=== PATIENT | male | born 1960 | race Caucasian/White ===

== ENCOUNTER 2023-04-24 14:53 | Inpatient (IN) | payer OTHER ==
[~2023-04-24 14:53] MED LIST: Iopamidol 370 76% 100 ML VIAL ONE
[2023-04-24 15:57] LABS: #Eosinphils 0.1 thou/uL (0.0-0.7); #Monocytes 0.7 thou/uL (0.11-0.59); #Neutrophils 4.8 thou/uL (1.40-6.50); %Basophils 0.2 % (0.0-1.0); %Eosinophils 1.8 % (0.0-10.0); %Lymphocytes 13.6 % (21.0-51.0); %Monocytes 11.2 % (0.0-10.0); %Neutrophils 72.7 % (42.0-75.0); Hemoglobin 8.4 g/dL (14.0-18.0); Mean Corpuscular Hemoglobin 28.9 pg (27.0-31.0); Mean Corpuscular Volume 99.7 fl (78.0-98.0); Mean Platelet Volume 10.5 fL (7.4-10.4); Platelet Count 176 10x3/uL (130-400); RBC Distribution Width 20.8 % (11.5-14.5); Red Blood Cell (RBC) Count 2.91 mill/uL (4.70-6.10); White Blood Cell (WBC) Count 6.5 10x3/uL (4.8-10.8)
[2023-04-24 16:20] LABS: ALT (SGPT) 20 U/L (8-55); AST (SGOT) 36 U/L (5-34); Albumin 2.3 g/dL (3.4-4.8); Alkaline Phosphatase 90 U/L (40-110); Anion Gap 10 mmol/L (10-20); BUN (Urea Nitrogen) 18 mg/dL (8.4-25.7); Bilirubin, Total 0.9 mg/dL (0.2-1.2); Calc. Creatinine Clearance 0 mL/min (70-130); Calcium 7.8 mg/dL (7.8-10.44); Carbon Dioxide 19 mmol/L (23-31); Chloride 116 mmol/L (98-107); Estimated GFR 98; Globulin 4.8 g/dL (2.4-3.5); Glucose 118 mg/dL (80-115); Potassium 3.3 mmol/L (3.5-5.1); Protein, Total 7.1 g/dL (5.8-8.1); Sodium 142 mmol/L (136-145)
[2023-04-24] MEDS ORDERED: Sodium Chloride 0.9% 100 ML ONE (17:46)
[2023-04-24] MEDS ORDERED: cefTRIAXone (ROCEPHIN) 2 GM VIAL ONE (17:46)
[2023-04-24] MEDS ORDERED: Ondansetron PF 4 MG/2 ML Vial IVP PRN (20:41)
[2023-04-24] MEDS ORDERED: Acetaminophen 325 MG TAB PO PRN (20:41)
[2023-04-24] MEDS ORDERED: Ondansetron ODT 4 MG TAB PO PRN (20:41)
[2023-04-24] MEDS ORDERED: Acetaminophen 650 MG Suppository PR PRN (20:41)
[2023-04-24] MEDS ORDERED: Electrolyte Replacement Protocol 1 EACH FS SCH (20:42)
[2023-04-24] MEDS ORDERED: Lorazepam 1 MG TAB PO PRN (20:44)
[2023-04-24] MEDS ORDERED: Lorazepam 2 MG/ML VIAL IM PRN (20:44)
[2023-04-24 20:57] LABS: Hemoglobin A1c 5.1 % (4.0-6.0)
[2023-04-24 21:07] LABS: Magnesium 2.2 mg/dL (1.6-2.6); Phosphorus 3.1 mg/dL (2.3-4.7)
[2023-04-24] MEDS ORDERED: Nicotine 14 MG PATCH TD PRN (21:13)
[2023-04-24 22:04] LABS: Body Fluid Source Ascites Body Fluid; Tube # 3
[2023-04-24 22:05] LABS: Clarity Hazy (Clear)
[2023-04-24 22:19] LABS: RBC Count-Automated (BF) 260 /cu.mm; WBC/Nucleated-Auto (BF) 507 /cu.mm
[2023-04-24 22:21] LABS: BF Color Yellow
[2023-04-24 22:21] LABS: INR-International Normal Ratio 1.4; Prothrombin Time 17.4 sec (12.0-14.7)
[2023-04-24 22:57] LABS: BF Segmented Neutrophils 19 %; Cell Count Non Hematic 36 %; Lymphocytes 45 %
[2023-04-25 00:59] VITALS: BMI 26.4
[2023-04-25] MEDS: Famotidine 20 MG TAB PO SCH ×2 (01:03→08:07)
[2023-04-25] MEDS: Thiamine HCl 200 MG/2 ML VIAL SLOW IVP SCH ×2 (01:07→21:43)
[2023-04-25] MEDS: Famotidine/PF 20 mg/2ml Vial SLOW IVP SCH ×3 (01:07→21:43)
[2023-04-25] MEDS: Albumin 25% 25 GM/100 ML BOT IVPB SCH ×4 (01:08→17:44)
[2023-04-25 01:42] LABS: HBCM Index 0.11 S/CO (0-0.79); HBSAg Index 0.24 S/CO (0-0.99); Hep A IgM AB Non-Reactive S/CO (NonReactive); Hep B Surf Ag Non-Reactive S/CO (NonReactive); Hepatitis B Core IgM Abs Non-Reactive S/CO (NonReactive)
[2023-04-25 02:58] LABS: Hep C IgG Ab Reflex HepC Qnt S/CO (NonReactive)
[2023-04-25 07:05] LABS: Amphetamine Detected (NotDetected); Barbiturates Screen Not Detected (NotDetected); Benzodiazepine Screen Not Detected (NotDetected); Cocaine Metabolite Screen Not Detected (NotDetected); Methadone Not Detected (NotDetected); Methamphetamine Detected (NotDetected); Opiate Screen Not Detected (NotDetected); Oxycodone Screen Not Detected (NotDetected); Phencyclidine (PCP) Not Detected (NotDetected); THC/Cannabinoid Screen Detected (NotDetected); Tricyclic Screen Not Detected (NotDetected)
[2023-04-25] MEDS: Folic Acid 1 MG TAB PO SCH (08:07)
[2023-04-25] MEDS: Multivit, Therapeutic 1 TAB PO SCH (08:08)
[2023-04-25] MEDS ORDERED: cefTRIAXone\\ROCEPHIN 1 GM in Sodium Chloride 0.9% 100 ML IVPB SCH (09:00)
[2023-04-25] MEDS: Furosemide 40 MG TAB PO SCH (10:51)
[2023-04-25] MEDS: Spironolactone 100 MG TAB PO SCH (10:51)
[2023-04-25 11:11] LABS: Syphilis Antibody Nonreactive (Nonreactive); Syphilis Antibody Index 0.45 S/CO (<1.00 Non-Reactive)
[2023-04-25] MEDS: cefTRIAXone\\ROCEPHIN 1 GM in Sodium Chloride 0.9% 100 ML IVPB SCH (17:01)
[2023-04-25] MEDS ORDERED: Lorazepam 1 MG TAB PO PRN (20:44)
[2023-04-25 21:02] LABS: #Eosinphils 0.1 thou/uL (0.0-0.7); #Monocytes 0.4 thou/uL (0.11-0.59); #Neutrophils 2.4 thou/uL (1.40-6.50); %Basophils 0.3 % (0.0-1.0); %Eosinophils 2.5 % (0.0-10.0); %Lymphocytes 19.4 % (21.0-51.0); %Monocytes 10.4 % (0.0-10.0); %Neutrophils 67.1 % (42.0-75.0); Hematocrit 23.8 % (42.0-52.0); Hemoglobin 7.2 g/dL (14.0-18.0); Mean Corpuscular HGB CONC 30.3 g/dL (32.0-36.0); Mean Corpuscular Hemoglobin 28.3 pg (27.0-31.0); Mean Corpuscular Volume 93.7 fl (78.0-98.0); Mean Platelet Volume 10.9 fL (7.4-10.4); Platelet Count 157 10x3/uL (130-400); RBC Distribution Width 19.9 % (11.5-14.5); Red Blood Cell (RBC) Count 2.54 mill/uL (4.70-6.10); White Blood Cell (WBC) Count 3.6 10x3/uL (4.8-10.8)
[2023-04-25 21:27] LABS: ALT (SGPT) 15 U/L (8-55); AST (SGOT) 27 U/L (5-34); Alkaline Phosphatase 84 U/L (40-110); Anion Gap 8 mmol/L (10-20); BUN (Urea Nitrogen) 21 mg/dL (8.4-25.7); Bilirubin, Total 0.8 mg/dL (0.2-1.2); Calc. Creatinine Clearance 82 mL/min (70-130); Calcium 7.8 mg/dL (7.8-10.44); Carbon Dioxide 19 mmol/L (23-31); Chloride 115 mmol/L (98-107); Estimated GFR 95; Globulin 3.4 g/dL (2.4-3.5); Glucose 112 mg/dL (80-115); Iron 32 ug/dL (65-175); Iron Binding Capacity, Total 190 mcg/dL (261-462); Iron Binding Capacity, Total 208 mcg/dL (261-462); Potassium 3.3 mmol/L (3.5-5.1); Protein, Total 6.4 g/dL (5.8-8.1); Sodium 139 mmol/L (136-145)
[2023-04-26 05:35] LABS: Hematocrit 24.4 % (42.0-52.0); Hemoglobin 7.4 g/dL (14.0-18.0); Mean Corpuscular HGB CONC 30.3 g/dL (32.0-36.0); Mean Corpuscular Hemoglobin 28.6 pg (27.0-31.0); Mean Corpuscular Volume 94.2 fl (78.0-98.0); Mean Platelet Volume 9.8 fL (7.4-10.4); Platelet Count 139 10x3/uL (130-400); RBC Distribution Width 20.1 % (11.5-14.5); Red Blood Cell (RBC) Count 2.59 mill/uL (4.70-6.10); White Blood Cell (WBC) Count 3.3 10x3/uL (4.8-10.8)
[2023-04-26 06:00] LABS: Anion Gap 9 mmol/L (10-20); BUN (Urea Nitrogen) 20 mg/dL (8.4-25.7); Calc. Creatinine Clearance 87 mL/min (70-130); Calcium 7.8 mg/dL (7.8-10.44); Carbon Dioxide 19 mmol/L (23-31); Chloride 115 mmol/L (98-107); Estimated GFR 97; Glucose 140 mg/dL (80-115); Potassium 3.7 mmol/L (3.5-5.1); Sodium 139 mmol/L (136-145)
[2023-04-26 06:07] LABS: Immunoglob - G (Total IgG) 2030 mg/dL (540-1822)
[2023-04-26 06:08] LABS: Immunoglob - M (Total IgM) 143 mg/dL (22-240)
[2023-04-26] MEDS: Multivit, Therapeutic 1 TAB PO SCH (08:28)
[2023-04-26] MEDS: Furosemide 40 MG TAB PO SCH (08:28)
[2023-04-26] MEDS: Spironolactone 100 MG TAB PO SCH ×2 (08:28→21:27)
[2023-04-26] MEDS: Folic Acid 1 MG TAB PO SCH (08:28)
[2023-04-26] MEDS: Famotidine/PF 20 mg/2ml Vial SLOW IVP SCH ×2 (08:28→21:27)
[2023-04-26] MEDS: Ferrous Sulfate 325 MG TAB PO SCH (11:07)
[2023-04-26] MEDS: Albumin 25% 25 GM/100 ML BOT IVPB SCH ×3 (13:06→23:20)
[2023-04-26] MEDS: Furosemide 40 MG/4 ML VIAL SLOW IVP SCH (13:06)
[2023-04-26] MEDS: cefTRIAXone\\ROCEPHIN 1 GM in Sodium Chloride 0.9% 100 ML IVPB SCH (17:14)
[2023-04-26] MEDS ORDERED: Lorazepam 1 MG TAB PO PRN (20:44)
[2023-04-26] MEDS: Thiamine HCl 200 MG/2 ML VIAL SLOW IVP SCH (21:27)
[2023-04-27 05:26] LABS: #Eosinphils 0.1 thou/uL (0.0-0.7); #Monocytes 0.4 thou/uL (0.11-0.59); #Neutrophils 1.9 thou/uL (1.40-6.50); %Basophils 0.3 % (0.0-1.0); %Eosinophils 2.6 % (0.0-10.0); %Lymphocytes 23.5 % (21.0-51.0); %Monocytes 12.3 % (0.0-10.0); Hematocrit 25.2 % (42.0-52.0); Hemoglobin 7.7 g/dL (14.0-18.0); Mean Corpuscular HGB CONC 30.6 g/dL (32.0-36.0); Mean Corpuscular Volume 91.6 fl (78.0-98.0); Mean Platelet Volume 11.7 fL (7.4-10.4); Platelet Count 156 10x3/uL (130-400); RBC Distribution Width 19.8 % (11.5-14.5); Red Blood Cell (RBC) Count 2.75 mill/uL (4.70-6.10); White Blood Cell (WBC) Count 3.1 10x3/uL (4.8-10.8)
[2023-04-27] MEDS: Furosemide 40 MG/4 ML VIAL SLOW IVP SCH ×2 (06:43→13:52)
[2023-04-27] MEDS: Albumin 25% 25 GM/100 ML BOT IVPB SCH (06:43)
[2023-04-27 07:02] LABS: ALT (SGPT) 15 U/L (8-55); AST (SGOT) 27 U/L (5-34); Albumin 3.3 g/dL (3.4-4.8); Alkaline Phosphatase 80 U/L (40-110); Anion Gap 13 mmol/L (10-20); BUN (Urea Nitrogen) 22 mg/dL (8.4-25.7); Bilirubin, Total 0.9 mg/dL (0.2-1.2); Calc. Creatinine Clearance 85 mL/min (70-130); Calcium 8.3 mg/dL (7.8-10.44); Carbon Dioxide 21 mmol/L (23-31); Chloride 113 mmol/L (98-107); Estimated GFR 97; Globulin 3.5 g/dL (2.4-3.5); Glucose 97 mg/dL (80-115); Potassium 3.7 mmol/L (3.5-5.1); Protein, Total 6.8 g/dL (5.8-8.1); Sodium 143 mmol/L (136-145)
[2023-04-27] MEDS: Multivit, Therapeutic 1 TAB PO SCH (08:16)
[2023-04-27] MEDS: Spironolactone 100 MG TAB PO SCH ×2 (08:16→21:55)
[2023-04-27] MEDS: Famotidine/PF 20 mg/2ml Vial SLOW IVP SCH ×2 (08:16→21:55)
[2023-04-27] MEDS: Folic Acid 1 MG TAB PO SCH (08:16)
[2023-04-27] MEDS ORDERED: Lorazepam 0.5 MG TAB PO PRN (20:44)
[2023-04-27] MEDS: Thiamine 100 MG TAB PO SCH (21:55)
[2023-04-28] MEDS: Furosemide 40 MG/4 ML VIAL SLOW IVP SCH (05:17)
[2023-04-28 05:23] LABS: #Eosinphils 0.1 thou/uL (0.0-0.7); #Monocytes 0.5 thou/uL (0.11-0.59); #Neutrophils 1.7 thou/uL (1.40-6.50); %Basophils 0.7 % (0.0-1.0); %Eosinophils 2.6 % (0.0-10.0); %Lymphocytes 24.6 % (21.0-51.0); %Monocytes 15.1 % (0.0-10.0); %Neutrophils 56.7 % (42.0-75.0); Hematocrit 26.3 % (42.0-52.0); Hemoglobin 8.1 g/dL (14.0-18.0); Mean Corpuscular HGB CONC 30.8 g/dL (32.0-36.0); Mean Corpuscular Hemoglobin 28.5 pg (27.0-31.0); Mean Corpuscular Volume 92.6 fl (78.0-98.0); Mean Platelet Volume 10.2 fL (7.4-10.4); Platelet Count 134 10x3/uL (130-400); RBC Distribution Width 19.5 % (11.5-14.5); Red Blood Cell (RBC) Count 2.84 mill/uL (4.70-6.10); White Blood Cell (WBC) Count 3.1 10x3/uL (4.8-10.8)
[2023-04-28 05:54] LABS: ALT (SGPT) 16 U/L (8-55); AST (SGOT) 31 U/L (5-34); Albumin 3.5 g/dL (3.4-4.8); Alkaline Phosphatase 74 U/L (40-110); Anion Gap 12 mmol/L (10-20); BUN (Urea Nitrogen) 25 mg/dL (8.4-25.7); Bilirubin, Total 1.1 mg/dL (0.2-1.2); Calc. Creatinine Clearance 83 mL/min (70-130); Calcium 8.7 mg/dL (7.8-10.44); Carbon Dioxide 23 mmol/L (23-31); Chloride 107 mmol/L (98-107); Estimated GFR 96; Globulin 3.4 g/dL (2.4-3.5); Glucose 156 mg/dL (80-115); Potassium 3.7 mmol/L (3.5-5.1); Protein, Total 6.9 g/dL (5.8-8.1); Sodium 138 mmol/L (136-145)
[2023-04-28] MEDS: Famotidine/PF 20 mg/2ml Vial SLOW IVP SCH ×3 (09:10→22:24)
[2023-04-28] MEDS: Ferrous Sulfate 325 MG TAB PO SCH (09:11)
[2023-04-28] MEDS: Folic Acid 1 MG TAB PO SCH (09:11)
[2023-04-28] MEDS: Spironolactone 100 MG TAB PO SCH ×2 (09:11→22:24)
[2023-04-28] MEDS: Multivit, Therapeutic 1 TAB PO SCH (09:11)
[2023-04-28] MEDS ORDERED: Furosemide 40 MG TAB PO SCH ×2 (09:15→14:00)
[2023-04-28 12:21] LABS: ANA Symphony (Qualitative) Negative (Negative); ANA Symphony (Quantitative) 0.3 Ratio (< 0.7 Negative); EliA Vaculitis New Method **** NEW METHOD ****; Mitochondrial Ab 1.5 U/mL (<4 Negative); dsDNA IgG Antibody 5.7 IU/mL (<10 Negative)
[2023-04-28] MEDS: Thiamine 100 MG TAB PO SCH (22:24)
[2023-04-29 03:47] LABS: #Eosinphils 0.1 thou/uL (0.0-0.7); #Monocytes 0.5 thou/uL (0.11-0.59); #Neutrophils 2.6 thou/uL (1.40-6.50); %Basophils 0.2 % (0.0-1.0); %Eosinophils 2.5 % (0.0-10.0); %Lymphocytes 20.3 % (21.0-51.0); %Monocytes 12.6 % (0.0-10.0); %Neutrophils 63.9 % (42.0-75.0); Hematocrit 25.4 % (42.0-52.0); Hemoglobin 7.9 g/dL (14.0-18.0); Mean Corpuscular HGB CONC 31.1 g/dL (32.0-36.0); Mean Corpuscular Hemoglobin 28.6 pg (27.0-31.0); Mean Platelet Volume 11.6 fL (7.4-10.4); Platelet Count 146 10x3/uL (130-400); RBC Distribution Width 19.6 % (11.5-14.5); Red Blood Cell (RBC) Count 2.76 mill/uL (4.70-6.10)
[2023-04-29 04:13] LABS: ALT (SGPT) 18 U/L (8-55); AST (SGOT) 36 U/L (5-34); Albumin 3.3 g/dL (3.4-4.8); Alkaline Phosphatase 115 U/L (40-110); Anion Gap 10 mmol/L (10-20); BUN (Urea Nitrogen) 31 mg/dL (8.4-25.7); Bilirubin, Total 0.8 mg/dL (0.2-1.2); Calc. Creatinine Clearance 63 mL/min (70-130); Calcium 8.7 mg/dL (7.8-10.44); Carbon Dioxide 25 mmol/L (23-31); Chloride 107 mmol/L (98-107); Estimated GFR 69; Globulin 3.6 g/dL (2.4-3.5); Glucose 104 mg/dL (80-115); Potassium 3.8 mmol/L (3.5-5.1); Protein, Total 6.9 g/dL (5.8-8.1); Sodium 138 mmol/L (136-145)
[2023-04-29 08:22] VITALS: BP 102/65; TEMP 98.5
[2023-04-29] MEDS ORDERED: Spironolactone 100 MG TAB PO SCH ×2 (08:30→17:00)
[2023-04-29] MEDS ORDERED: Furosemide 40 MG TAB PO SCH (09:00)
[2023-04-29] MEDS: Multivit, Therapeutic 1 TAB PO SCH (09:11)
[2023-04-29] MEDS: Folic Acid 1 MG TAB PO SCH (09:11)
[2023-04-29] MEDS: Famotidine/PF 20 mg/2ml Vial SLOW IVP SCH (09:12)
[2023-04-29 20:39] LABS: HCV RNA, log10 6.477 (.); Hep C PCR-Quant 3000000 IU/mL (.)
[2023-04-30] MEDS ORDERED: Ferrous Sulfate 325 MG TAB PO SCH (08:00)
== END 2023-04-29 13:06 | disposition home or self-care (01) | DRG 433 ==
LOC: ERS 14:53 → MSONC 20:41
PROVIDERS: ADMIT Student in an Organized Health Care Education/Training Program; ATTEND Internal Medicine
PROC: 30233J1 Transfusion of Nonautologous Serum Albumin into Peripheral Vein, Percutaneous Approach (ICD-10-PCS; 2023-04-24)
PROC: 0W9G3ZX Drainage of Peritoneal Cavity, Percutaneous Approach, Diagnostic (ICD-10-PCS; principal; 2023-04-25)
PROC: 0W9G3ZZ Drainage of Peritoneal Cavity, Percutaneous Approach (ICD-10-PCS; 2023-04-25)
DX: K74.60 Unspecified cirrhosis of liver (principal); R18.8 Other ascites; K42.9 Umbilical hernia without obstruction or gangrene; E87.6 Hypokalemia; B19.20 Unspecified viral hepatitis C without hepatic coma; F19.10 Other psychoactive substance abuse, uncomplicated; D50.9 Iron deficiency anemia, unspecified; Z98.890 Other specified postprocedural states
CPT/HCPCS: 36415; 49082; 74177; 80048; 80053; 80074; 80306; 82042; 82105; 82390; 82607; 82728; 83036; 83516; 83540; 83550; 83735; 84100; 85025; 85027; 85060; 85610; 86015; 86038; 86225; 86780; 87070; 87205; 87522; 88112; 88305; 89051; 96374; J0696; J1940; J3411; J3490; P9047; Q9967; S0028

== ENCOUNTER 2023-06-18 05:07 | Emergency (ER) | payer SELFPAY ==
[2023-06-18] MEDS ORDERED: Morphine 4 MG/ML VIAL ONE ×2 (06:03→09:00)
[2023-06-18] MEDS ORDERED: Ondansetron PF 4 MG/2 ML Vial ONE (06:03)
[2023-06-18 06:12] LABS: #Eosinphils 0.1 thou/uL (0.0-0.7); #Monocytes 0.9 thou/uL (0.11-0.59); #Neutrophils 6.7 thou/uL (1.40-6.50); %Basophils 0.2 % (0.0-1.0); %Eosinophils 0.7 % (0.0-10.0); %Lymphocytes 8.3 % (21.0-51.0); %Monocytes 10.3 % (0.0-10.0); %Neutrophils 80.1 % (42.0-75.0); Hematocrit 36.8 % (42.0-52.0); Hemoglobin 11.7 g/dL (14.0-18.0); Mean Corpuscular HGB CONC 31.8 g/dL (32.0-36.0); Mean Corpuscular Hemoglobin 30.2 pg (27.0-31.0); Mean Corpuscular Volume 94.8 fl (78.0-98.0); Mean Platelet Volume 12.3 fL (7.4-10.4); Platelet Count 161 10x3/uL (130-400); RBC Distribution Width 18.4 % (11.5-14.5); Red Blood Cell (RBC) Count 3.88 mill/uL (4.70-6.10); White Blood Cell (WBC) Count 8.4 10x3/uL (4.8-10.8)
[2023-06-18 06:38] LABS: ALT (SGPT) 29 U/L (8-55); AST (SGOT) 39 U/L (5-34); Albumin 3.4 g/dL (3.4-4.8); Alkaline Phosphatase 82 U/L (40-110); Anion Gap 12 mmol/L (10-20); BUN (Urea Nitrogen) 23 mg/dL (8.4-25.7); Bilirubin, Total 1.3 mg/dL (0.2-1.2); Calc. Creatinine Clearance 0 mL/min (70-130); Calcium 9.1 mg/dL (7.8-10.44); Carbon Dioxide 15 mmol/L (23-31); Chloride 113 mmol/L (98-107); Estimated GFR 88; Globulin 4.4 g/dL (2.4-3.5); Glucose 115 mg/dL (80-115); Lipase 48 U/L (8-78); Potassium 3.5 mmol/L (3.5-5.1); Protein, Total 7.8 g/dL (5.8-8.1); Sodium 136 mmol/L (136-145)
[2023-06-18] MEDS ORDERED: Iopamidol 370 76% 100 ML VIAL ONE (13:21)
== END 2023-06-18 11:28 | disposition home or self-care (01) ==
LOC: ERS 05:07
DX: K40.90 Unilateral inguinal hernia, without obstruction or gangrene, not specified as recurrent (principal); F17.290 Nicotine dependence, other tobacco product, uncomplicated
CPT/HCPCS: 36415; 74177; 80053; 82140; 83605; 83690; 85025; 93005; 96374; 96375; 96376; J2270; J2405; Q9967

== ENCOUNTER 2023-06-28 06:14 | Emergency (ER) | payer OTHER, SELFPAY ==
[2023-06-28] MEDS ORDERED: Morphine 4 MG/ML VIAL ONE (07:06)
[2023-06-28] MEDS ORDERED: Ondansetron PF 4 MG/2 ML Vial ONE (07:06)
[2023-06-28 07:08] LABS: #Eosinphils 0.1 thou/uL (0.0-0.7); #Monocytes 0.8 thou/uL (0.11-0.59); #Neutrophils 3.8 thou/uL (1.40-6.50); %Basophils 0.4 % (0.0-1.0); %Eosinophils 2.5 % (0.0-10.0); %Lymphocytes 16.3 % (21.0-51.0); %Monocytes 13.5 % (0.0-10.0); %Neutrophils 66.9 % (42.0-75.0); Hematocrit 27.7 % (42.0-52.0); Hemoglobin 9.2 g/dL (14.0-18.0); Mean Corpuscular HGB CONC 33.2 g/dL (32.0-36.0); Mean Corpuscular Hemoglobin 30.5 pg (27.0-31.0); Mean Corpuscular Volume 91.7 fl (78.0-98.0); Mean Platelet Volume 11.7 fL (7.4-10.4); Platelet Count 95 10x3/uL (130-400); RBC Distribution Width 18.2 % (11.5-14.5); Red Blood Cell (RBC) Count 3.02 mill/uL (4.70-6.10); White Blood Cell (WBC) Count 5.6 10x3/uL (4.8-10.8)
[2023-06-28 07:21] LABS: INR-International Normal Ratio 1.5; PTT 38.6 sec (22.9-36.1); Prothrombin Time 18.1 sec (12.0-14.7)
[2023-06-28 07:35] LABS: ALT (SGPT) 21 U/L (8-55); AST (SGOT) 39 U/L (5-34); Albumin 3.2 g/dL (3.4-4.8); Alkaline Phosphatase 93 U/L (40-110); Anion Gap 10 mmol/L (10-20); BUN (Urea Nitrogen) 30 mg/dL (8.4-25.7); Bilirubin, Total 0.5 mg/dL (0.2-1.2); Calc. Creatinine Clearance 0 mL/min (70-130); Calcium 8.7 mg/dL (7.8-10.44); Carbon Dioxide 14 mmol/L (23-31); Chloride 113 mmol/L (98-107); Estimated GFR 37; Globulin 4.1 g/dL (2.4-3.5); Glucose 100 mg/dL (80-115); Lipase 97 U/L (8-78); Magnesium 2.1 mg/dL (1.6-2.6); Potassium 4.1 mmol/L (3.5-5.1); Protein, Total 7.3 g/dL (5.8-8.1); Sodium 133 mmol/L (136-145)
[2023-06-28 07:50] LABS: Anisocytosis MARKED = >30 cells HPF (0-5); Burr Cells MODERATE= 6-15 cells HPF (0-1); CellaVision Operator ID LAB.KW3; Platelet Adequacy Comment Platelets Decreased; Poikilocytosis MODERATE=16-30 cells HPF (0-5); Polychromasia SLIGHT = 2-3 cells HPF (0-2); Schistocytes SLIGHT = 2-5 cells HPF (0-1)
[2023-06-28] MEDS ORDERED: Iopamidol-370 76% 500 ML MDV (1 ML CHARGE) ONE (11:02)
== END 2023-06-28 11:44 | disposition home or self-care (01) ==
LOC: ERS 06:14
DX: K46.9 Unspecified abdominal hernia without obstruction or gangrene (principal); F17.210 Nicotine dependence, cigarettes, uncomplicated
CPT/HCPCS: 36415; 74177; 80053; 83605; 83690; 83735; 85025; 85610; 85730; 96361; 96374; 96375; J2270; J2405; Q9967

== ENCOUNTER 2023-08-08 11:51 | Inpatient (IN) | payer OTHER, SELFPAY ==
[2023-08-08 12:49] LABS: #Monocytes 1.1 thou/uL (0.11-0.59); #Neutrophils 17.4 thou/uL (1.40-6.50); %Basophils 0.1 % (0.0-1.0); %Eosinophils 0.2 % (0.0-10.0); %Lymphocytes 2.8 % (21.0-51.0); %Monocytes 5.5 % (0.0-10.0); %Neutrophils 90.9 % (42.0-75.0); Hematocrit 25.1 % (42.0-52.0); Hemoglobin 8.1 g/dL (14.0-18.0); Mean Corpuscular HGB CONC 32.3 g/dL (32.0-36.0); Mean Corpuscular Hemoglobin 30.3 pg (27.0-31.0); Mean Platelet Volume 11.5 fL (7.4-10.4); Platelet Count 235 10x3/uL (130-400); RBC Distribution Width 15.9 % (11.5-14.5); Red Blood Cell (RBC) Count 2.67 mill/uL (4.70-6.10); White Blood Cell (WBC) Count 19.2 10x3/uL (4.8-10.8)
[2023-08-08 13:04] LABS: INR-International Normal Ratio 1.8; Prothrombin Time 20.8 sec (12.0-14.7)
[2023-08-08 13:05] LABS: PTT 33.2 sec (22.9-36.1)
[2023-08-08 13:06] LABS: ALT (SGPT) 12 U/L (8-55); AST (SGOT) 19 U/L (5-34); Albumin 2.6 g/dL (3.4-4.8); Alkaline Phosphatase 69 U/L (40-110); Anion Gap 14 mmol/L (10-20); BUN (Urea Nitrogen) 22 mg/dL (8.4-25.7); Bilirubin, Total 1.5 mg/dL (0.2-1.2); Calc. Creatinine Clearance 0 mL/min (70-130); Calcium 8.3 mg/dL (7.8-10.44); Carbon Dioxide 18 mmol/L (23-31); Chloride 109 mmol/L (98-107); Estimated GFR 55; Globulin 3.4 g/dL (2.4-3.5); Glucose 139 mg/dL (80-115); Lipase 29 U/L (8-78); Potassium 3.4 mmol/L (3.5-5.1); Sodium 138 mmol/L (136-145)
[2023-08-08 13:08] LABS: Troponin I Less than 0.010 ng/mL (< 0.028)
[2023-08-08] MEDS ORDERED: Cefepime 2 GM VIAL ONE (13:42)
[2023-08-08] MEDS ORDERED: Potassium Chloride 20 MEQ TAB ONE (15:09)
[2023-08-08] MEDS ORDERED: Furosemide 20 MG (2 mL) VIAL ONE (15:09)
[2023-08-08] MEDS ORDERED: Sodium Chloride 0.9% 100 ML ONE (15:10)
[2023-08-08 15:54] LABS: Lactic Acid 2.6 mmol/L (0.5-2.2)
[2023-08-08] MEDS ORDERED: Calcium Carbonate 500 MG ChewTAB PO PRN (16:42)
[2023-08-08] MEDS ORDERED: Senokot S 8.6-50 MG TAB PO PRN (16:42)
[2023-08-08] MEDS ORDERED: Ondansetron PF 4 MG/2 ML Vial IVP PRN (16:42)
[2023-08-08] MEDS ORDERED: Vancomycin 1 GM/200 ML (FROZEN) BAG ONE (16:44)
[2023-08-08 16:45] LABS: Bacteria/HPF None Seen HPF (None Seen); Bilirubin Negative (Negative); Blood, Urine Negative (Negative); CAUTI Indications for Culture Pelvic or flank pain; Clarity Clear (Clear); Glucose, Urine (Dipstick) Normal (Negative); Ketone, Urine Negative (Negative); Leukocyte Negative Leu/uL (Negative); Nitrite Negative (Negative); Protein, Urine (Dipstick) Negative (Neg-Trace); RBC/HPF 0-3 HPF (0-3); Specific Gravity, Urine 1.015 (1.002-1.036); Squamous Epithelial 0-3 HPF (0-3); Urobilinogen Normal mg/dL (Less than 2); WBC/HPF 0-3 HPF (0-3); pH, Urine 5.5 (5.0-9.0)
[2023-08-08 16:47] LABS: Urine Culture Reflex No No
[2023-08-08 17:28] LABS: Troponin I Less than 0.010 ng/mL (< 0.028)
[2023-08-08] MEDS: traMADol HCl 50 MG TAB PO PRN (19:37)
[2023-08-08] MEDS: Midodrine HCl 5 MG TAB PO SCH ×2 (19:45→23:10)
[2023-08-08] MEDS: Albumin 25% 25 GM (100 mL) BOT IVPB SCH (19:45)
[2023-08-08] MEDS: Thiamine 100 MG TAB PO SCH (20:44)
[2023-08-08 20:49] LABS: Troponin I Less than 0.010 ng/mL (< 0.028)
[2023-08-08] MEDS: Vancomycin HCl 750 MG in Sodium Chloride 0.9% 250 ML 250 ML IVPB SCH (21:46)
[2023-08-08] MEDS: Nicotine 14 MG PATCH TD SCH (23:10)
[2023-08-09] MEDS: Cefepime 1 GM in Sodium Chloride 0.9% 100 ML IVPB SCH (03:01)
[2023-08-09 04:54] LABS: #Eosinphils 0.1 thou/uL (0.0-0.7); #Monocytes 0.6 thou/uL (0.11-0.59); %Basophils 0.1 % (0.0-1.0); %Eosinophils 1.1 % (0.0-10.0); %Lymphocytes 6.4 % (21.0-51.0); %Monocytes 6.8 % (0.0-10.0); %Neutrophils 85.1 % (42.0-75.0); Hematocrit 20.7 % (42.0-52.0); Hemoglobin 6.7 g/dL (14.0-18.0); Mean Corpuscular HGB CONC 32.4 g/dL (32.0-36.0); Mean Corpuscular Hemoglobin 30.2 pg (27.0-31.0); Mean Corpuscular Volume 93.2 fl (78.0-98.0); Mean Platelet Volume 10.7 fL (7.4-10.4); Platelet Count 188 10x3/uL (130-400); RBC Distribution Width 15.9 % (11.5-14.5); Red Blood Cell (RBC) Count 2.22 mill/uL (4.70-6.10); White Blood Cell (WBC) Count 9.4 10x3/uL (4.8-10.8)
[2023-08-09 05:08] LABS: Vancomycin, Random 15.3 ug/mL (See Comment)
[2023-08-09 05:15] LABS: INR-International Normal Ratio 1.8; Prothrombin Time 21.2 sec (12.0-14.7)
[2023-08-09 05:21] LABS: ALT (SGPT) 10 U/L (8-55); AST (SGOT) 18 U/L (5-34); Albumin 2.8 g/dL (3.4-4.8); Alkaline Phosphatase 66 U/L (40-110); Anion Gap 14 mmol/L (10-20); BUN (Urea Nitrogen) 21 mg/dL (8.4-25.7); Bilirubin, Total 1.3 mg/dL (0.2-1.2); Calc. Creatinine Clearance 59 mL/min (70-130); Calcium 8.2 mg/dL (7.8-10.44); Carbon Dioxide 19 mmol/L (23-31); Chloride 110 mmol/L (98-107); Estimated GFR 62; Globulin 2.9 g/dL (2.4-3.5); Glucose 105 mg/dL (80-115); Iron 15 ug/dL (65-175); Iron Binding Capacity, Total 144 mcg/dL (261-462); Potassium 3.6 mmol/L (3.5-5.1); Protein, Total 5.7 g/dL (5.8-8.1); Sodium 139 mmol/L (136-145)
[2023-08-09 05:56] LABS: Ferritin 425.07 ng/mL (22-322); Thyroid Stimulating Hormone 1.4341 uIU/mL (0.35-4.94)
[2023-08-09 08:36] VITALS: BMI 27.0
[2023-08-09] MEDS: Folic Acid 1 MG TAB PO SCH (10:45)
[2023-08-09] MEDS: Saccharomyces boulardii 250 MG CAP PO SCH (10:45)
[2023-08-09] MEDS: Vancomycin (BATCH) 1.25 GM in Premix 1 BAG IVPB SCH (17:46)
[2023-08-10] MEDS: Midodrine HCl 5 MG TAB PO SCH (00:12)
[2023-08-10 02:02] LABS: #Eosinphils 0.1 thou/uL (0.0-0.7); #Monocytes 0.4 thou/uL (0.11-0.59); #Neutrophils 5.1 thou/uL (1.40-6.50); %Basophils 0.2 % (0.0-1.0); %Lymphocytes 9.4 % (21.0-51.0); %Monocytes 6.5 % (0.0-10.0); %Neutrophils 82.6 % (42.0-75.0); Hematocrit 21.3 % (42.0-52.0); Hemoglobin 6.9 g/dL (14.0-18.0); Mean Corpuscular HGB CONC 32.4 g/dL (32.0-36.0); Mean Corpuscular Hemoglobin 30.1 pg (27.0-31.0); Mean Platelet Volume 11.3 fL (7.4-10.4); Platelet Count 189 10x3/uL (130-400); RBC Distribution Width 16.1 % (11.5-14.5); Red Blood Cell (RBC) Count 2.29 mill/uL (4.70-6.10); White Blood Cell (WBC) Count 6.2 10x3/uL (4.8-10.8)
[2023-08-10 02:17] LABS: ALT (SGPT) 10 U/L (8-55); AST (SGOT) 16 U/L (5-34); Albumin 2.9 g/dL (3.4-4.8); Alkaline Phosphatase 57 U/L (40-110); Anion Gap 8 mmol/L (10-20); BUN (Urea Nitrogen) 23 mg/dL (8.4-25.7); Bilirubin, Total 1.2 mg/dL (0.2-1.2); Calc. Creatinine Clearance 60 mL/min (70-130); Calcium 8.2 mg/dL (7.8-10.44); Carbon Dioxide 22 mmol/L (23-31); Chloride 112 mmol/L (98-107); Estimated GFR 63; Globulin 2.8 g/dL (2.4-3.5); Glucose 114 mg/dL (80-115); Protein, Total 5.7 g/dL (5.8-8.1); Sodium 138 mmol/L (136-145)
[2023-08-10 04:27] LABS: INR-International Normal Ratio 1.6; Prothrombin Time 18.6 sec (12.0-14.7)
[2023-08-10] MEDS: Acetaminophen 325 MG TAB PO PRN (08:07)
[2023-08-10 13:47] LABS: Hematocrit 24.1 % (42.0-52.0); Hemoglobin 7.8 g/dL (14.0-18.0)
[2023-08-11 08:26] LABS: INR-International Normal Ratio 1.4; Prothrombin Time 16.7 sec (12.0-14.7)
[2023-08-11 08:46] LABS: Vancomycin, Random 14.7 ug/mL (See Comment)
[2023-08-11 09:04] VITALS: BP 128/80; TEMP 98.1
[2023-08-11 10:44] LABS: Hematocrit 25.2 % (42.0-52.0); Hemoglobin 8.3 g/dL (14.0-18.0); Mean Corpuscular HGB CONC 32.9 g/dL (32.0-36.0); Mean Platelet Volume 11.6 fL (7.4-10.4); Platelet Count 187 10x3/uL (130-400); Red Blood Cell (RBC) Count 2.77 mill/uL (4.70-6.10)
== END 2023-08-11 14:43 | disposition home or self-care (01) | DRG 433 ==
LOC: ERS 11:51 → SUATTDRO 11:51 → 2NO 16:28 → T4-A 08-09 16:13
PROVIDERS: ADMIT Internal Medicine; ATTEND Internal Medicine
PROC: 30233J1 Transfusion of Nonautologous Serum Albumin into Peripheral Vein, Percutaneous Approach (ICD-10-PCS; principal; 2023-08-08)
PROC: 30233N1 Transfusion of Nonautologous Red Blood Cells into Peripheral Vein, Percutaneous Approach (ICD-10-PCS; 2023-08-10)
DX: K70.31 Alcoholic cirrhosis of liver with ascites (principal); E87.20 Acidosis, unspecified; L03.116 Cellulitis of left lower limb; L03.115 Cellulitis of right lower limb; I50.9 Heart failure, unspecified; Z90.49 Acquired absence of other specified parts of digestive tract; Z98.890 Other specified postprocedural states; F17.210 Nicotine dependence, cigarettes, uncomplicated; D64.9 Anemia, unspecified; Z79.899 Other long term (current) drug therapy; K21.9 Gastro-esophageal reflux disease without esophagitis; Z71.6 Tobacco abuse counseling; K40.90 Unilateral inguinal hernia, without obstruction or gangrene, not specified as recurrent
CPT/HCPCS: 36415; 36430; 71045; 80053; 80202; 81001; 82728; 83540; 83550; 83605; 83690; 83735; 83880; 84145; 84443; 84484; 85025; 85027; 85610; 85730; 86140; 86850; 86900; 86901; 87040; 87077; 87081; 87149; 87186; 93005; 96365; 96375; J0692; J1940; J3370; J3370-JW; J3490; J7050; P9016; P9047

== ENCOUNTER 2023-11-04 09:31 | Emergency (ER) | payer OTHER, SELFPAY ==
[2023-11-04] MEDS ORDERED: Ondansetron PF 4 MG/2 ML Vial ONE (10:46)
[2023-11-04] MEDS ORDERED: Iopamidol-370 76% 500 ML MDV (1 ML CHARGE) ONE (11:15)
[2023-11-04 11:37] LABS: Hemoglobin 10.4 g/dL (14.0-18.0); Mean Corpuscular HGB CONC 31.5 g/dL (32.0-36.0); Mean Corpuscular Hemoglobin 31.2 pg (27.0-31.0); Mean Corpuscular Volume 99.1 fL (78.0-98.0); Platelet Count 146 10x3/uL (130-400); RBC Distribution Width 18.2 % (11.5-14.5); Red Blood Cell (RBC) Count 3.33 mill/uL (4.70-6.10)
[2023-11-04 11:49] LABS: ALT (SGPT) 32 U/L (8-55); AST (SGOT) 53 U/L (5-34); Albumin 3.2 g/dL (3.4-4.8); Alkaline Phosphatase 113 U/L (40-110); Anion Gap 15 mmol/L (10-20); BUN (Urea Nitrogen) 34 mg/dL (8.4-25.7); Bilirubin, Total 1.1 mg/dL (0.2-1.2); Calc. Creatinine Clearance 0 mL/min (70-130); Calcium 9.6 mg/dL (7.8-10.44); Carbon Dioxide 13 mmol/L (23-31); Chloride 112 mmol/L (98-107); Estimated GFR 41; Globulin 4.3 g/dL (2.4-3.5); Glucose 182 mg/dL (80-115); Lipase 29 U/L (8-78); Potassium 4.1 mmol/L (3.5-5.1); Protein, Total 7.5 g/dL (5.8-8.1); Sodium 136 mmol/L (136-145)
[2023-11-04 12:04] LABS: #Basophils Less than 0.03 10x3/uL (0.0-0.2); #Eosinphils Less than 0.03 10x3/uL (0.0-0.7); %Basophils 0.2 % (0.0-1.0); %Eosinophils 0.2 % (0.0-10.0); %Lymphocytes 8.4 % (21.0-51.0); %Monocytes 6.2 % (0.0-10.0); %Neutrophils 84.5 % (42.0-75.0)
[2023-11-04] MEDS ORDERED: Piperacillin/Tazobactam 4.5 GM VIAL ONE (12:07)
[2023-11-04] MEDS ORDERED: Sodium Chloride 0.9% 100 ML ONE (12:07)
[2023-11-04] MEDS ORDERED: Benzocaine 20% Spray 60 ML CAN ONE (12:32)
== END 2023-11-04 16:16 | disposition short-term general hospital (02) ==
LOC: ERS 09:31
DX: K56.609 Unspecified intestinal obstruction, unspecified as to partial versus complete obstruction (principal); K74.60 Unspecified cirrhosis of liver; F17.210 Nicotine dependence, cigarettes, uncomplicated
CPT/HCPCS: 36415; 43753; 74018; 74177; 80053; 82140; 83690; 85025; 96361; 96365; 96375; J2405; J2543; J3490; Q9967

== ENCOUNTER 2023-11-22 02:30 | Emergency (ER) | payer OTHER ==
[2023-11-22] MEDS ORDERED: Vancomycin (BATCH) 1.5 GM in Premix 1 BAG IVPB SCH (03:30)
[2023-11-22] MEDS ORDERED: Sodium Chloride 0.9% 100 ML ONE (03:37)
[2023-11-22] MEDS ORDERED: Ondansetron PF 4 MG/2 ML Vial ONE (03:37)
[2023-11-22] MEDS ORDERED: Morphine 4 MG/ML VIAL ONE (03:37)
[2023-11-22] MEDS ORDERED: Cefepime 2 GM VIAL ONE (03:37)
[2023-11-22 04:06] LABS: #Basophils Less than 0.03 10x3/uL (0.0-0.2); %Basophils 0.1 % (0.0-1.0); %Eosinophils 0.6 % (0.0-10.0); %Lymphocytes 7.4 % (21.0-51.0); %Neutrophils 80.4 % (42.0-75.0); Hematocrit 30.2 % (42.0-52.0); Hemoglobin 10.1 g/dL (14.0-18.0); Mean Corpuscular HGB CONC 33.4 g/dL (32.0-36.0); Mean Corpuscular Hemoglobin 30.6 pg (27.0-31.0); Mean Corpuscular Volume 91.5 fL (78.0-98.0); Platelet Count 85 10x3/uL (130-400); RBC Distribution Width 16.4 % (11.5-14.5)
[2023-11-22 04:51] LABS: ALT (SGPT) 27 U/L (8-55); AST (SGOT) 61 U/L (5-34); Albumin 2.7 g/dL (3.4-4.8); Alkaline Phosphatase 98 U/L (40-110); Anion Gap 14 mmol/L (10-20); BUN (Urea Nitrogen) 16 mg/dL (8.4-25.7); Calc. Creatinine Clearance 0 mL/min (70-130); Calcium 7.9 mg/dL (7.8-10.44); Carbon Dioxide 14 mmol/L (23-31); Chloride 109 mmol/L (98-107); Estimated GFR 80; Glucose 104 mg/dL (80-115); Lipase 16 U/L (8-78); Magnesium 1.7 mg/dL (1.6-2.6); Potassium 3.8 mmol/L (3.5-5.1); Protein, Total 6.7 g/dL (5.8-8.1); Sodium 133 mmol/L (136-145)
[2023-11-22 05:09] LABS: Platelet Adequacy Comment Platelets Decreased; Polychromasia SLIGHT = 2-3 cells HPF (0-2); Tear Drops SLIGHT = 2-5 cells HPF (0-1)
[2023-11-22 05:59] LABS: Bacteria/HPF None Seen HPF (None Seen); Bilirubin Negative (Negative); Blood, Urine Negative (Negative); CAUTI Indications for Culture Pelvic or flank pain; Clarity Clear (Clear); Glucose, Urine (Dipstick) Normal (Negative); Ketone, Urine Negative (Negative); Leukocyte Negative Leu/uL (Negative); Nitrite Negative (Negative); Protein, Urine (Dipstick) Negative (Neg-Trace); RBC/HPF 0-3 HPF (0-3); Specific Gravity, Urine 1.037 (1.002-1.036); Squamous Epithelial None Seen HPF (0-3); Urobilinogen Normal mg/dL (Less than 2); WBC/HPF 0-3 HPF (0-3); pH, Urine 5.5 (5.0-9.0)
[2023-11-22 06:03] LABS: Urine Culture Reflex No No
[2023-11-22] MEDS ORDERED: Iopamidol-370 76% 500 ML MDV (1 ML CHARGE) ONE (14:41)
== END 2023-11-22 07:35 | disposition home or self-care (01) ==
LOC: ERS 02:30
DX: K43.9 Ventral hernia without obstruction or gangrene (principal); L03.311 Cellulitis of abdominal wall; K74.60 Unspecified cirrhosis of liver; B19.20 Unspecified viral hepatitis C without hepatic coma; F17.210 Nicotine dependence, cigarettes, uncomplicated; Z55.0 Illiteracy and low-level literacy
CPT/HCPCS: 74177; 80053; 81001; 83605; 83690; 83735; 85025; 87040; 87086; 93005; 96374; 96375; J0692; J2270; J2405; J3370; J3490; Q9967

== ENCOUNTER 2023-11-23 10:15 | Emergency (ER) | payer OTHER ==
[2023-11-23] MEDS ORDERED: Ondansetron PF 4 MG/2 ML Vial ONE (11:06)
[2023-11-23] MEDS ORDERED: Morphine 4 MG/ML VIAL ONE ×2 (11:06→13:15)
[2023-11-23 11:11] LABS: #Basophils Less than 0.03 10x3/uL (0.0-0.2); %Basophils 0.1 % (0.0-1.0); %Eosinophils 0.7 % (0.0-10.0); %Lymphocytes 5.4 % (21.0-51.0); %Monocytes 10.5 % (0.0-10.0); %Neutrophils 82.9 % (42.0-75.0); Hematocrit 29.8 % (42.0-52.0); Hemoglobin 9.9 g/dL (14.0-18.0); Mean Corpuscular HGB CONC 33.2 g/dL (32.0-36.0); Mean Corpuscular Hemoglobin 31.2 pg (27.0-31.0); Mean Platelet Volume 11.5 fL (7.4-10.4); Platelet Count 133 10x3/uL (130-400); RBC Distribution Width 16.2 % (11.5-14.5); Red Blood Cell (RBC) Count 3.17 mill/uL (4.70-6.10)
[2023-11-23 11:21] LABS: Bacteria/HPF None Seen HPF (None Seen); Bilirubin Negative (Negative); Blood, Urine Negative (Negative); CAUTI Indications for Culture Pelvic or flank pain; Clarity Clear (Clear); Glucose, Urine (Dipstick) Normal (Negative); Ketone, Urine Negative (Negative); Leukocyte Negative Leu/uL (Negative); Nitrite Negative (Negative); Protein, Urine (Dipstick) 10 mg/dL (Neg-Trace); RBC/HPF 0-3 HPF (0-3); Specific Gravity, Urine 1.024 (1.002-1.036); Squamous Epithelial 0-3 HPF (0-3); Urobilinogen Normal mg/dL (Less than 2); WBC/HPF 0-3 HPF (0-3); pH, Urine 5.5 (5.0-9.0)
[2023-11-23 11:23] LABS: Urine Culture Reflex No No
[2023-11-23 11:31] LABS: ALT (SGPT) 23 U/L (8-55); AST (SGOT) 33 U/L (5-34); Albumin 2.6 g/dL (3.4-4.8); Alkaline Phosphatase 108 U/L (40-110); Anion Gap 12 mmol/L (10-20); BUN (Urea Nitrogen) 22 mg/dL (8.4-25.7); Bilirubin, Total 1.7 mg/dL (0.2-1.2); Calc. Creatinine Clearance 0 mL/min (70-130); Calcium 8.2 mg/dL (7.8-10.44); Carbon Dioxide 17 mmol/L (23-31); Chloride 108 mmol/L (98-107); Estimated GFR 64; Glucose 107 mg/dL (80-115); Lipase 15 U/L (8-78); Magnesium 1.8 mg/dL (1.6-2.6); Potassium 3.3 mmol/L (3.5-5.1); Protein, Total 6.6 g/dL (5.8-8.1); Sodium 134 mmol/L (136-145)
== END 2023-11-23 13:26 | disposition home or self-care (01) ==
LOC: ERS 10:15
DX: K43.9 Ventral hernia without obstruction or gangrene (principal); F17.210 Nicotine dependence, cigarettes, uncomplicated
CPT/HCPCS: 36415; 74177; 80053; 81001; 83605; 83690; 83735; 85025; 96374; 96375; 96376; J2270; J2405

== ENCOUNTER 2023-12-08 19:06 | Emergency (ER) | payer OTHER ==
[2023-12-08 21:10] LABS: #Basophils Less than 0.03 10x3/uL (0.0-0.2); %Basophils 0.1 % (0.0-1.0); %Eosinophils 1.3 % (0.0-10.0); %Lymphocytes 5.9 % (21.0-51.0); %Monocytes 8.4 % (0.0-10.0); %Neutrophils 83.9 % (42.0-75.0); Hematocrit 24.2 % (42.0-52.0); Hemoglobin 7.7 g/dL (14.0-18.0); Mean Corpuscular HGB CONC 31.8 g/dL (32.0-36.0); Mean Corpuscular Hemoglobin 30.4 pg (27.0-31.0); Mean Corpuscular Volume 95.7 fL (78.0-98.0); Mean Platelet Volume 9.8 fL (7.4-10.4); Platelet Count 153 10x3/uL (130-400); RBC Distribution Width 15.7 % (11.5-14.5); Red Blood Cell (RBC) Count 2.53 mill/uL (4.70-6.10)
[2023-12-08 21:30] LABS: Troponin I Less than 0.010 ng/mL (< 0.028)
[2023-12-08 21:33] LABS: ALT (SGPT) 9 U/L (8-55); AST (SGOT) 19 U/L (5-34); Albumin 2.2 g/dL (3.4-4.8); Alkaline Phosphatase 84 U/L (40-110); Anion Gap 10 mmol/L (10-20); BUN (Urea Nitrogen) 15 mg/dL (8.4-25.7); Bilirubin, Total 0.9 mg/dL (0.2-1.2); Calc. Creatinine Clearance 0 mL/min (70-130); Calcium 7.8 mg/dL (7.8-10.44); Carbon Dioxide 21 mmol/L (23-31); Chloride 112 mmol/L (98-107); Estimated GFR 74; Globulin 3.6 g/dL (2.4-3.5); Glucose 123 mg/dL (80-115); Potassium 3.3 mmol/L (3.5-5.1); Protein, Total 5.8 g/dL (5.8-8.1); Sodium 140 mmol/L (136-145)
[2023-12-08] MEDS ORDERED: Potassium Chloride 20 MEQ TAB ONE (21:41)
[2023-12-08] MEDS ORDERED: Furosemide 40 MG TAB ONE (21:45)
== END 2023-12-08 22:01 | disposition home or self-care (01) ==
LOC: ERS 19:06
DX: K74.60 Unspecified cirrhosis of liver (principal); R60.0 Localized edema; F17.210 Nicotine dependence, cigarettes, uncomplicated
CPT/HCPCS: 36415; 80053; 83880; 84484; 85025; 93005

== ENCOUNTER 2024-05-01 21:33 | Inpatient (IN) | payer OTHER ==
[~2024-05-01 21:33] MED LIST changes: -Iopamidol 370 76% 100 ML VIAL ONE; +Iopamidol-370 76% 500 ML MDV (1 ML CHARGE) ONE
[2024-05-01 22:14] LABS: #Basophils Less than 0.03 10x3/uL (0.0-0.2); #Eosinophils Less than 0.03 10x3/uL (0.0-0.7); %Basophils 0.1 % (0.0-1.0); %Eosinophils 0.1 % (0.0-10.0); %Lymphocytes 3.3 % (21.0-51.0); %Monocytes 7.1 % (0.0-10.0); %Neutrophils 88.8 % (42.0-75.0); Hematocrit 29.9 % (42.0-52.0); Hemoglobin 9.8 g/dL (14.0-18.0); Mean Corpuscular HGB CONC 32.8 g/dL (32.0-36.0); Mean Corpuscular Hemoglobin 27.1 pg (27.0-31.0); Mean Corpuscular Volume 82.6 fL (78.0-98.0); Platelet Count 170 10x3/uL (130-400); RBC Distribution Width 21.3 % (11.5-14.5); Red Blood Cell (RBC) Count 3.62 mill/uL (4.70-6.10)
[2024-05-01] MEDS ORDERED: Morphine 4 MG/ML VIAL ONE (22:22)
[2024-05-01 22:27] LABS: INR-International Normal Ratio 1.7; Prothrombin Time 20.3 sec (12.0-14.7)
[2024-05-01 22:28] LABS: ALT (SGPT) 8 U/L (8-55); AST (SGOT) 15 U/L (5-34); Albumin 2.8 g/dL (3.4-4.8); Alkaline Phosphatase 72 U/L (40-110); Anion Gap 13 mmol/L (10-20); BUN (Urea Nitrogen) 21 mg/dL (8.4-25.7); Bilirubin, Total 1.2 mg/dL (0.2-1.2); Calc. Creatinine Clearance 0 mL/min (70-130); Calcium 7.6 mg/dL (7.8-10.44); Carbon Dioxide 15 mmol/L (23-31); Chloride 110 mmol/L (98-107); Estimated GFR 74; Glucose 132 mg/dL (80-115); Lipase 66 U/L (8-78); PTT 36.9 sec (22.9-36.1); Protein, Total 5.8 g/dL (5.8-8.1); Sodium 135 mmol/L (136-145)
[2024-05-01] MEDS: Vancomycin (BATCH) 1.75 GM in Premix 1 BAG IVPB SCH (23:59)
[2024-05-02] MEDS ORDERED: Piperacillin/Tazobactam 4.5 GM VIAL ONE (00:47)
[2024-05-02] MEDS ORDERED: Sodium Chloride 0.9% 100 ML ONE (00:48)
[2024-05-02] MEDS: Piperacillin/Tazobactam 4.5 GM in Sodium Chloride 0.9% 100 ML IVPB SCH (00:50)
[2024-05-02] MEDS ORDERED: Morphine 4 MG/ML VIAL ONE (01:13)
[2024-05-02] MEDS ORDERED: Potassium Chloride 20 MEQ TAB ONE (01:13)
[2024-05-02] MEDS ORDERED: Calcium Carbonate 500 MG ChewTAB PO PRN (03:43)
[2024-05-02] MEDS ORDERED: Ondansetron ODT 4 MG TAB PO PRN (03:43)
[2024-05-02] MEDS ORDERED: Acetaminophen 650 MG Suppository PR PRN (03:43)
[2024-05-02] MEDS ORDERED: Ondansetron PF 4 MG/2 ML Vial IVP PRN (03:43)
[2024-05-02] MEDS ORDERED: Electrolyte Replacement Protocol 1 EACH FS SCH (03:44)
[2024-05-02] MEDS: Acetaminophen 325 MG TAB PO SCH (06:00)
[2024-05-02] MEDS: Lactulose 20 GM (30 mL) UDCUP PO SCH (09:54)
[2024-05-02] MEDS: Furosemide 40 MG TAB PO SCH (09:55)
[2024-05-02] MEDS: Famotidine 20 MG TAB PO SCH (09:55)
[2024-05-02] MEDS: Thiamine 100 MG TAB PO SCH (09:55)
[2024-05-02] MEDS: Pantoprazole DR 40 MG TAB PO SCH (09:55)
[2024-05-02] MEDS: Midodrine HCl 5 MG TAB PO SCH ×2 (09:55→21:45)
[2024-05-02] MEDS: Spironolactone 100 MG TAB PO SCH (09:55)
[2024-05-02] MEDS: Famotidine/PF 20 mg/2ml Vial SLOW IVP SCH (09:56)
[2024-05-02] MEDS: Rifaximin 550 MG TAB PO SCH (11:32)
[2024-05-02] MEDS ORDERED: Sodium Bicarbonate 2.5 MEQ/5 ML SDV ONE (15:25)
[2024-05-02] MEDS ORDERED: Lidocaine 1% PF 5 ML VIAL ONE (15:25)
[2024-05-02 17:17] LABS: Amphetamine Not Detected (NotDetected); Barbiturates Screen Not Detected (NotDetected); Benzodiazepine Screen Not Detected (NotDetected); Cocaine Metabolite Screen Not Detected (NotDetected); Methadone Not Detected (NotDetected); Methamphetamine Not Detected (NotDetected); Opiate Screen Detected (NotDetected); Oxycodone Screen Not Detected (NotDetected); Phencyclidine (PCP) Not Detected (NotDetected); THC/Cannabinoid Screen Not Detected (NotDetected); Tricyclic Screen Not Detected (NotDetected)
[2024-05-02 18:49] LABS: RBC Count-Automated (BF) 1677 /cu.mm; WBC/Nucleated-Auto (BF) 1152 /cu.mm
[2024-05-02 18:59] LABS: BF Color Yellow; Body Fluid Source Ascites Body Fluid; Clarity Clear (Clear); Tube # EDTA
[2024-05-02 19:06] LABS: BF Segmented Neutrophils 64 %; Cell Count Non Hematic 30 %; Eosinophils 1 %; Lymphocytes 5 %
[2024-05-02] MEDS: Albumin 25% 25 GM (100 mL) BOT IVPB SCH (21:45)
[2024-05-02] MEDS: Sodium Chloride 0.9% 500 ML IV SCH (23:33)
[2024-05-03] MEDS: Albumin 25% 25 GM (100 mL) BOT IVPB SCH (00:16)
[2024-05-03] MEDS: Acetaminophen 325 MG TAB PO PRN (04:34)
[2024-05-03 05:04] LABS: ALT (SGPT) Less than 5 U/L (8-55); AST (SGOT) 15 U/L (5-34); Albumin 2.7 g/dL (3.4-4.8); Alkaline Phosphatase 57 U/L (40-110); Anion Gap 13 mmol/L (10-20); BUN (Urea Nitrogen) 25 mg/dL (8.4-25.7); Calc. Creatinine Clearance 61 mL/min (70-130); Calcium 7.2 mg/dL (7.8-10.44); Carbon Dioxide 11 mmol/L (23-31); Chloride 109 mmol/L (98-107); Estimated GFR 68; Globulin 2.1 g/dL (2.4-3.5); Glucose 103 mg/dL (80-115); Potassium 3.5 mmol/L (3.5-5.1); Protein, Total 4.8 g/dL (5.8-8.1); Sodium 129 mmol/L (136-145)
[2024-05-03 05:40] LABS: #Basophils Less than 0.03 10x3/uL (0.0-0.2); %Basophils 0.1 % (0.0-1.0); %Eosinophils 0.6 % (0.0-10.0); %Lymphocytes 4.5 % (21.0-51.0); %Monocytes 7.7 % (0.0-10.0); %Neutrophils 86.3 % (42.0-75.0); Hematocrit 24.6 % (42.0-52.0); Hemoglobin 8.2 g/dL (14.0-18.0); Mean Corpuscular HGB CONC 33.3 g/dL (32.0-36.0); Mean Corpuscular Hemoglobin 28.2 pg (27.0-31.0); Mean Corpuscular Volume 84.5 fL (78.0-98.0); Platelet Count 128 10x3/uL (130-400); RBC Distribution Width 21.2 % (11.5-14.5); Red Blood Cell (RBC) Count 2.91 mill/uL (4.70-6.10)
[2024-05-03] MEDS: Potassium Bicarbonate/Cit Ac 20 MEQ TAB PO SCH (08:36)
[2024-05-03 16:20] VITALS: BMI 26.2
[2024-05-04 05:30] VITALS: BMI 26.1
[2024-05-04] MEDS: Sodium Bicarbonate Tab 325 MG TAB PO SCH (10:03)
[2024-05-05 04:53] LABS: Anion Gap 12 mmol/L (10-20); BUN (Urea Nitrogen) 20 mg/dL (8.4-25.7); Calc. Creatinine Clearance 80 mL/min (70-130); Calcium 7.8 mg/dL (7.8-10.44); Carbon Dioxide 14 mmol/L (23-31); Chloride 114 mmol/L (98-107); Estimated GFR 94; Glucose 115 mg/dL (80-115); Potassium 3.6 mmol/L (3.5-5.1); Sodium 136 mmol/L (136-145)
[2024-05-05 05:14] LABS: #Basophils Less than 0.03 10x3/uL (0.0-0.2); #Eosinophils Less than 0.03 10x3/uL (0.0-0.7); %Basophils 0.3 % (0.0-1.0); %Eosinophils 0.6 % (0.0-10.0); %Lymphocytes 8.5 % (21.0-51.0); %Monocytes 6.2 % (0.0-10.0); %Neutrophils 83.3 % (42.0-75.0); Hematocrit 25.7 % (42.0-52.0); Hemoglobin 8.6 g/dL (14.0-18.0); Mean Corpuscular HGB CONC 33.5 g/dL (32.0-36.0); Mean Corpuscular Hemoglobin 27.8 pg (27.0-31.0); Mean Corpuscular Volume 83.2 fL (78.0-98.0); Platelet Count 112 10x3/uL (130-400); RBC Distribution Width 21.5 % (11.5-14.5); Red Blood Cell (RBC) Count 3.09 mill/uL (4.70-6.10)
[2024-05-05] MEDS ORDERED: Nitroglycerin 0.4 MG TAB (25 Tab Bottle) SL PRN (10:09)
[2024-05-05] MEDS: Morphine 2 MG/ML VIAL SLOW IVP PRN (10:14)
[2024-05-05] MEDS: Sodium Bicarbonate Tab 325 MG TAB PO SCH (14:10)
[2024-05-06 06:26] LABS: #Basophils Less than 0.03 10x3/uL (0.0-0.2); %Basophils 0.2 % (0.0-1.0); %Eosinophils 0.7 % (0.0-10.0); %Lymphocytes 6.4 % (21.0-51.0); %Monocytes 6.4 % (0.0-10.0); %Neutrophils 85.2 % (42.0-75.0); Hematocrit 25.7 % (42.0-52.0); Hemoglobin 8.2 g/dL (14.0-18.0); Mean Corpuscular HGB CONC 31.9 g/dL (32.0-36.0); Mean Corpuscular Hemoglobin 27.2 pg (27.0-31.0); Mean Corpuscular Volume 85.1 fL (78.0-98.0); Platelet Count 103 10x3/uL (130-400); RBC Distribution Width 21.5 % (11.5-14.5); Red Blood Cell (RBC) Count 3.02 mill/uL (4.70-6.10)
[2024-05-06 06:31] LABS: INR-International Normal Ratio 1.6; Prothrombin Time 18.7 sec (12.0-14.7)
[2024-05-06 06:52] LABS: Anion Gap 12 mmol/L (10-20); BUN (Urea Nitrogen) 21 mg/dL (8.4-25.7); Calc. Creatinine Clearance 57 mL/min (70-130); Calcium 7.9 mg/dL (7.8-10.44); Carbon Dioxide 17 mmol/L (23-31); Chloride 109 mmol/L (98-107); Estimated GFR 70; Glucose 114 mg/dL (80-115); Magnesium 1.3 mg/dL (1.6-2.6); Potassium 3.7 mmol/L (3.5-5.1); Sodium 134 mmol/L (136-145)
[2024-05-06] MEDS ORDERED: Sodium Bicarbonate 2.5 MEQ/5 ML SDV ONE (08:41)
[2024-05-06] MEDS ORDERED: Lidocaine 1% PF 5 ML VIAL ONE (08:41)
[2024-05-06] MEDS: Magnesium Sulfate In Water 4 GM in Premix 1 BAG IVPB SCH (12:49)
[2024-05-06 19:50] VITALS: BP 124/87; TEMP 98.8
== END 2024-05-06 18:20 | disposition home or self-care (01) | DRG 432 ==
LOC: ERS 21:33 → ERHOLD 05-02 02:46 → IMCU/EMU 05-02 02:48 → MSONC 05-02 16:47
PROVIDERS: ADMIT Student in an Organized Health Care Education/Training Program; ATTEND Internal Medicine
PROC: 0W9G3ZZ Drainage of Peritoneal Cavity, Percutaneous Approach (ICD-10-PCS; principal; 2024-05-02)
PROC: 0W9G3ZZ Drainage of Peritoneal Cavity, Percutaneous Approach (ICD-10-PCS; 2024-05-06)
DX: K74.60 Unspecified cirrhosis of liver (principal); K65.2 Spontaneous bacterial peritonitis; I50.32 Chronic diastolic (congestive) heart failure; R18.8 Other ascites; E87.21 Acute metabolic acidosis; D68.4 Acquired coagulation factor deficiency; E87.6 Hypokalemia; D63.8 Anemia in other chronic diseases classified elsewhere; Z79.899 Other long term (current) drug therapy; Z90.49 Acquired absence of other specified parts of digestive tract; D69.59 Other secondary thrombocytopenia
CPT/HCPCS: 36415; 49083; 74177; 80048; 80053; 80306; 82140; 83605; 83690; 83735; 83880; 85025; 85060; 85610; 85730; 87040; 87070; 87205; 87428; 89051; 93005; 94760; 96374; 96375; 96376; 97139; J2272; J2543; J3370; J3475; J7030; P9047; Q9967

== ENCOUNTER 2024-05-07 04:01 | Emergency (ER) | payer OTHER ==
[2024-05-07] MEDS ORDERED: Morphine 4 MG/ML VIAL ONE (04:40)
[2024-05-07 05:07] LABS: #Basophils Less than 0.03 10x3/uL (0.0-0.2); #Eosinophils Less than 0.03 10x3/uL (0.0-0.7); %Basophils 0.1 % (0.0-1.0); %Eosinophils 0.1 % (0.0-10.0); %Lymphocytes 5.7 % (21.0-51.0); %Neutrophils 82.7 % (42.0-75.0); Hematocrit 28.3 % (42.0-52.0); Hemoglobin 9.2 g/dL (14.0-18.0); Mean Corpuscular HGB CONC 32.5 g/dL (32.0-36.0); Mean Corpuscular Hemoglobin 27.6 pg (27.0-31.0); Platelet Count 145 10x3/uL (130-400); RBC Distribution Width 21.6 % (11.5-14.5); Red Blood Cell (RBC) Count 3.33 mill/uL (4.70-6.10)
[2024-05-07 05:16] LABS: INR-International Normal Ratio 1.6; PTT 37.5 sec (22.9-36.1); Prothrombin Time 19.2 sec (12.0-14.7)
[2024-05-07 05:18] LABS: ALT (SGPT) 7 U/L (8-55); AST (SGOT) 17 U/L (5-34); Albumin 2.8 g/dL (3.4-4.8); Alkaline Phosphatase 75 U/L (40-110); Anion Gap 10 mmol/L (10-20); BUN (Urea Nitrogen) 19 mg/dL (8.4-25.7); Bilirubin, Total 1.3 mg/dL (0.2-1.2); Calc. Creatinine Clearance 0 mL/min (70-130); Calcium 8.1 mg/dL (7.8-10.44); Carbon Dioxide 19 mmol/L (23-31); Chloride 107 mmol/L (98-107); Estimated GFR 59; Globulin 3.1 g/dL (2.4-3.5); Glucose 138 mg/dL (80-115); Lipase 72 U/L (8-78); Potassium 3.9 mmol/L (3.5-5.1); Protein, Total 5.9 g/dL (5.8-8.1); Sodium 132 mmol/L (136-145)
== END 2024-05-07 06:39 | disposition home or self-care (01) ==
LOC: ERS 04:01
DX: R18.8 Other ascites (principal); K74.60 Unspecified cirrhosis of liver; R10.84 Generalized abdominal pain; Z87.891 Personal history of nicotine dependence
CPT/HCPCS: 80053; 83605; 83690; 85025; 85610; 85730; 96374; J2272

== ENCOUNTER 2024-05-10 09:19 | Inpatient (IN) | payer OTHER ==
[2024-05-10] MEDS ORDERED: fentaNYL 50 mcg/mL 1 mL Vial ONE (10:17)
[2024-05-10 10:38] LABS: #Basophils Less than 0.03 10x3/uL (0.0-0.2); #Eosinophils Less than 0.03 10x3/uL (0.0-0.7); %Basophils 0.1 % (0.0-1.0); %Eosinophils 0.1 % (0.0-10.0); %Lymphocytes 4.3 % (21.0-51.0); %Monocytes 4.8 % (0.0-10.0); %Neutrophils 89.5 % (42.0-75.0); Hematocrit 24.4 % (42.0-52.0); Hemoglobin 7.9 g/dL (14.0-18.0); Mean Corpuscular HGB CONC 32.4 g/dL (32.0-36.0); Mean Corpuscular Hemoglobin 27.6 pg (27.0-31.0); Mean Corpuscular Volume 85.3 fL (78.0-98.0); Mean Platelet Volume 9.9 fL (7.4-10.4); Platelet Count 169 10x3/uL (130-400); RBC Distribution Width 22.2 % (11.5-14.5); Red Blood Cell (RBC) Count 2.86 mill/uL (4.70-6.10)
[2024-05-10] MEDS ORDERED: Sodium Chloride 0.9% 100 ML ONE (10:46)
[2024-05-10] MEDS ORDERED: Cefepime 2 GM VIAL ONE (10:46)
[2024-05-10 10:52] LABS: Anion Gap 14 mmol/L (10-20); BUN (Urea Nitrogen) 22 mg/dL (8.4-25.7); Calc. Creatinine Clearance 0 mL/min (70-130); Calcium 7.8 mg/dL (7.8-10.44); Carbon Dioxide 15 mmol/L (23-31); Chloride 109 mmol/L (98-107); Estimated GFR 95; Glucose 108 mg/dL (80-115); Potassium 4.2 mmol/L (3.5-5.1); Sodium 134 mmol/L (136-145)
[2024-05-10 13:10] LABS: Bacteria/HPF None Seen HPF (None Seen); Bilirubin Negative (Negative); Blood, Urine Negative (Negative); CAUTI Indications for Culture Dysuria,urgency,freq; Clarity Clear (Clear); Glucose, Urine (Dipstick) Normal (Negative); Ketone, Urine Negative (Negative); Leukocyte Negative Leu/uL (Negative); Nitrite Negative (Negative); Protein, Urine (Dipstick) Negative (Neg-Trace); RBC/HPF 0-3 HPF (0-3); Specific Gravity, Urine 1.014 (1.002-1.036); Squamous Epithelial 0-3 HPF (0-3); Urobilinogen Normal mg/dL (Less than 2); WBC/HPF 0-3 HPF (0-3); pH, Urine 5.5 (5.0-9.0)
[2024-05-10 13:11] LABS: Urine Culture Reflex No No
[2024-05-10] MEDS ORDERED: Ondansetron ODT 4 MG TAB PO PRN (14:31)
[2024-05-10] MEDS ORDERED: Senokot S 8.6-50 MG TAB PO PRN (14:31)
[2024-05-10] MEDS ORDERED: Ondansetron PF 4 MG/2 ML Vial IVP PRN (14:31)
[2024-05-10] MEDS ORDERED: Calcium Carbonate 500 MG ChewTAB PO PRN (14:31)
[2024-05-10] MEDS ORDERED: Bisacodyl 5 MG TAB PO PRN (14:31)
[2024-05-10 16:21] LABS: RBC Count-Automated (BF) 947 /cu.mm; WBC/Nucleated-Auto (BF) 183 /cu.mm
[2024-05-10 16:46] LABS: BF Color Yellow; Body Fluid Source Ascites Body Fluid; Clarity Hazy (Clear); Tube # 1
[2024-05-10] MEDS: Vancomycin (BATCH) 1.5 GM in Premix 1 BAG IVPB SCH (17:18)
[2024-05-10 17:30] LABS: BF Segmented Neutrophils 33 %; Cell Count Non Hematic 38 %; Lymphocytes 28 %
[2024-05-10] MEDS: Piperacillin/Tazobactam 3.375 GM in Sodium Chloride 0.9% 100 ML IVPB SCH (17:49)
[2024-05-10 17:52] VITALS: BMI 26.5
[2024-05-10] MEDS: Morphine 2 MG/ML VIAL SLOW IVP PRN (18:39)
[2024-05-10] MEDS ORDERED: Piperacillin/Tazobactam 3.375 GM in Sodium Chloride 0.9% 100 ML IVPB SCH (22:00)
[2024-05-10] MEDS: Rifaximin 550 MG TAB PO SCH (22:57)
[2024-05-11 05:32] LABS: #Basophils Less than 0.03 10x3/uL (0.0-0.2); %Basophils 0.1 % (0.0-1.0); %Eosinophils 0.8 % (0.0-10.0); %Lymphocytes 3.8 % (21.0-51.0); %Monocytes 7.2 % (0.0-10.0); %Neutrophils 87.1 % (42.0-75.0); Hematocrit 25.2 % (42.0-52.0); Mean Corpuscular HGB CONC 31.7 g/dL (32.0-36.0); Mean Corpuscular Hemoglobin 27.3 pg (27.0-31.0); Mean Platelet Volume 9.9 fL (7.4-10.4); Platelet Count 158 10x3/uL (130-400); RBC Distribution Width 21.8 % (11.5-14.5); Red Blood Cell (RBC) Count 2.93 mill/uL (4.70-6.10)
[2024-05-11 06:08] LABS: ALT (SGPT) 10 U/L (8-55); AST (SGOT) 21 U/L (5-34); Albumin 2.3 g/dL (3.4-4.8); Alkaline Phosphatase 84 U/L (40-110); Anion Gap 12 mmol/L (10-20); BUN (Urea Nitrogen) 22 mg/dL (8.4-25.7); Bilirubin, Total 1.1 mg/dL (0.2-1.2); Calc. Creatinine Clearance 64 mL/min (70-130); Calcium 7.7 mg/dL (7.8-10.44); Carbon Dioxide 18 mmol/L (23-31); Chloride 107 mmol/L (98-107); Estimated GFR 77; Globulin 3.2 g/dL (2.4-3.5); Glucose 131 mg/dL (80-115); Potassium 4.3 mmol/L (3.5-5.1); Protein, Total 5.5 g/dL (5.8-8.1); Sodium 133 mmol/L (136-145)
[2024-05-11] MEDS ORDERED: CALCIUM CARBONATE PO SCH (09:00)
[2024-05-11] MEDS ORDERED: MAGNESIUM CARBONATE PO SCH (09:00)
[2024-05-11] MEDS ORDERED: [UNRECOGNIZED DRUG - OTHER] PO SCH (09:00)
[2024-05-11] MEDS: Ferrous Sulfate 325 MG TAB PO SCH (09:01)
[2024-05-11] MEDS: Sulfameth/Trimethoprim DS 800-160mg TAB PO SCH (09:01)
[2024-05-11] MEDS: Spironolactone 100 MG TAB PO SCH (09:01)
[2024-05-11] MEDS: Pantoprazole DR 40 MG TAB PO SCH (09:02)
[2024-05-11 09:37] VITALS: BP 107/68; TEMP 98.1
== END 2024-05-11 12:27 | disposition home or self-care (01) | DRG 433 ==
LOC: ERS 09:19 → T4-A 14:39
PROVIDERS: ADMIT Internal Medicine; ATTEND Internal Medicine
DX: K74.60 Unspecified cirrhosis of liver (principal); I50.32 Chronic diastolic (congestive) heart failure; R18.8 Other ascites; B18.2 Chronic viral hepatitis C; K72.10 Chronic hepatic failure without coma; Z90.49 Acquired absence of other specified parts of digestive tract; Z87.891 Personal history of nicotine dependence; I89.0 Lymphedema, not elsewhere classified
CPT/HCPCS: 36415; 49083; 80048; 80053; 81001; 82042; 82945; 83605; 83615; 84157; 85025; 85060; 87040; 87070; 87086; 87205; 89051; 94760; 96365; 96366; 96375; J0692; J2272; J2543; J3010; J3370

== ENCOUNTER 2024-05-29 17:44 | Inpatient (IN) | payer OTHER ==
[2024-05-29 18:38] LABS: Actual Bicarbonate (HCO3a) 18.7 mEq/L (22-28); Analyzer IN Cardio ER; Base Excess (BEa) -4.7 mEq/L (-2.0 to +3.0); CO2 Tension 28.5 mmHg (35.0-45.0); Calcium, Ionized (arterial) 1.13 mmol/L (1.12-1.30); Carboxyhemoglobin (COHb) 0.8 gm% (0.0-3.0); Hematocrit-ABG 25 % (42.0-52.0); Hemoglobin (Hb) 8.6 g/dL (14.0-18.0); O2 Tension (PaO2), arterial 80.2 mmHg (> 80.0); Potassium - ABG Lab 3.24 mmol/L (3.70-5.30); pH, Arterial 7.435 (7.35-7.45)
[2024-05-29 18:40] LABS: ALV-art Gradient 33.905 mmHg (0-20); Puncture Site Right Brachial art
[2024-05-29 19:14] LABS: Calc. Creatinine Clearance 0 mL/min (70-130); Estimated GFR 55
[2024-05-29 19:15] LABS: Acetaminophen Less than 10 mcg/mL (Less than 10); Alcohol Less than 10.0 mg/dL (Less than 10); Salicylate Less than 8.0 mg/dL (Less than 8.0)
[2024-05-29 19:17] LABS: ALT (SGPT) 15 U/L (8-55); AST (SGOT) 31 U/L (5-34); Albumin 2.1 g/dL (3.4-4.8); Alkaline Phosphatase 101 U/L (40-110); Anion Gap 12 mmol/L (10-20); BUN (Urea Nitrogen) 25 mg/dL (8.4-25.7); CK (CPK) 34 U/L (30-200); Calcium 7.5 mg/dL (7.8-10.44); Carbon Dioxide 15 mmol/L (23-31); Chloride 114 mmol/L (98-107); Globulin 4.5 g/dL (2.4-3.5); Glucose 95 mg/dL (80-115); Potassium 3.4 mmol/L (3.5-5.1); Protein, Total 6.6 g/dL (5.8-8.1); Sodium 138 mmol/L (136-145)
[2024-05-29 19:34] LABS: Anisocytosis MARKED = >30 cells HPF (0-5); Burr Cells MODERATE= 6-15 cells HPF (0-1); Macrocytosis MODERATE=16-30 cells HPF (0-5); Ovalocytes SLIGHT = 2-5 cells HPF (0-1); Platelet Adequacy Comment Platelets Decreased; Poikilocytosis MODERATE=16-30 cells HPF (0-5); Polychromasia SLIGHT = 2-3 cells HPF (0-2); Tear Drops SLIGHT = 2-5 cells HPF (0-1)
[2024-05-29 19:35] LABS: #Basophils Less than 0.03 10x3/uL (0.0-0.2); #Eosinophils Less than 0.03 10x3/uL (0.0-0.7); %Basophils 0.2 % (0.0-1.0); %Eosinophils 0.4 % (0.0-10.0); %Lymphocytes 15.6 % (21.0-51.0); %Monocytes 6.2 % (0.0-10.0); %Neutrophils 76.9 % (42.0-75.0); Hematocrit 26.5 % (42.0-52.0); Hemoglobin 8.4 g/dL (14.0-18.0); Mean Corpuscular HGB CONC 31.7 g/dL (32.0-36.0); Mean Corpuscular Hemoglobin 28.7 pg (27.0-31.0); Mean Corpuscular Volume 90.4 fL (78.0-98.0); Platelet Count 138 10x3/uL (130-400); RBC Distribution Width 24.1 % (11.5-14.5); Red Blood Cell (RBC) Count 2.93 mill/uL (4.70-6.10)
[2024-05-29] MEDS ORDERED: Sodium Chloride 0.9% 100 ML ONE (19:36)
[2024-05-29] MEDS ORDERED: Cefepime 2 GM VIAL ONE (19:36)
[2024-05-29 19:44] LABS: Lipase 176 U/L (8-78)
[2024-05-29 20:50] LABS: Bilirubin Negative (Negative); Blood, Urine Negative (Negative); CAUTI Indications for Culture Dysuria,urgency,freq; Clarity Clear (Clear); Glucose, Urine (Dipstick) Normal (Negative); Ketone, Urine Negative (Negative); Leukocyte Negative Leu/uL (Negative); Nitrite Negative (Negative); Protein, Urine (Dipstick) Negative (Neg-Trace); RBC/HPF 0-3 HPF (0-3); Specific Gravity, Urine 1.013 (1.002-1.036); Squamous Epithelial 0-3 HPF (0-3); Urobilinogen Normal mg/dL (Less than 2); WBC/HPF 0-3 HPF (0-3); pH, Urine 5.5 (5.0-9.0)
[2024-05-29 20:51] LABS: Amphetamine Not Detected (NotDetected); Barbiturates Screen Not Detected (NotDetected); Benzodiazepine Screen Not Detected (NotDetected); Cocaine Metabolite Screen Not Detected (NotDetected); Methadone Not Detected (NotDetected); Methamphetamine Not Detected (NotDetected); Opiate Screen Not Detected (NotDetected); Oxycodone Screen Not Detected (NotDetected); Phencyclidine (PCP) Not Detected (NotDetected); THC/Cannabinoid Screen Not Detected (NotDetected); Tricyclic Screen Not Detected (NotDetected)
[2024-05-29 21:12] LABS: Troponin I 0.011 ng/mL (< 0.028)
[2024-05-29] MEDS ORDERED: Azithromycin 500 MG VIAL ONE (21:22)
[2024-05-29] MEDS ORDERED: Lactulose 20 GM (30 mL) UDCUP ONE ×2 (21:22→23:37)
[2024-05-29] MEDS ORDERED: Ondansetron PF 4 MG/2 ML Vial IVP PRN (21:28)
[2024-05-29] MEDS ORDERED: Acetaminophen 650 MG Suppository PR PRN (21:28)
[2024-05-29] MEDS ORDERED: Communication Order-Pharmacy FS PRN (21:30)
[2024-05-29 22:03] LABS: Bacteria/HPF 1+ HPF (None Seen)
[2024-05-29 22:05] LABS: Urine Culture Reflex No No
[2024-05-29 22:19] LABS: Lactic Acid 1.74 mmol/L (0.5-2.2)
[2024-05-29 22:39] LABS: INR-International Normal Ratio 1.8; Prothrombin Time 21.3 sec (12.0-14.7)
[2024-05-29] MEDS ORDERED: Lidocaine 1% w/Epinephrine 1:100K 20 ML VIAL ONE (23:06)
[2024-05-29] MEDS ORDERED: Ondansetron PF 4 MG/2 ML Vial ONE (23:50)
[2024-05-30 00:57] LABS: RBC Count-Automated (BF) 996 /cu.mm; WBC/Nucleated-Auto (BF) 192 /cu.mm
[2024-05-30 01:08] LABS: BF Color Yellow; Clarity Clear (Clear)
[2024-05-30 01:54] LABS: Body Fluid Source Paracentesis Fluid; Tube # EDTA
[2024-05-30 01:58] LABS: BF Segmented Neutrophils 5 %; Cell Count Non Hematic 31 %; Lymphocytes 64 %
[2024-05-30 02:49] VITALS: BMI 26.6
[2024-05-30] MEDS: Lactulose 10 GM/15 ML Oral Solution PR SCH (02:49)
[2024-05-30] MEDS: Albumin 25% 25 GM (100 mL) BOT IVPB SCH (02:53)
[2024-05-30] MEDS: Vancomycin (BATCH) 1.75 GM in Premix 1 BAG IVPB SCH (03:02)
[2024-05-30 03:39] LABS: Influenza A by NAA Not Detected (NotDetected); Influenza B by NAA Not Detected (NotDetected); RSV by NAA Not Detected (NotDetected); SARS-CoV-2 NAA Rapid Test Not Detected (NotDetected)
[2024-05-30 05:55] LABS: Calc. Creatinine Clearance 52 mL/min (70-130); Estimated GFR 59; Prothrombin Time 22.8 sec (12.0-14.7)
[2024-05-30 05:57] LABS: ALT (SGPT) 12 U/L (8-55); AST (SGOT) 28 U/L (5-34); Alkaline Phosphatase 72 U/L (40-110); Anion Gap 12 mmol/L (10-20); BUN (Urea Nitrogen) 25 mg/dL (8.4-25.7); Bilirubin, Total 1.3 mg/dL (0.2-1.2); Calcium 7.4 mg/dL (7.8-10.44); Carbon Dioxide 17 mmol/L (23-31); Chloride 114 mmol/L (98-107); Globulin 3.7 g/dL (2.4-3.5); Glucose 79 mg/dL (80-115); Potassium 3.6 mmol/L (3.5-5.1); Protein, Total 5.7 g/dL (5.8-8.1); Sodium 139 mmol/L (136-145)
[2024-05-30 06:35] LABS: Free T4 (Free Thyroxine) 0.74 ng/dL (0.70-1.48)
[2024-05-30 07:26] LABS: #Basophils Less than 0.03 10x3/uL (0.0-0.2); #Eosinophils Less than 0.03 10x3/uL (0.0-0.7); %Eosinophils 0.2 % (0.0-10.0); %Lymphocytes 12.5 % (21.0-51.0); %Monocytes 3.8 % (0.0-10.0); %Neutrophils 83.2 % (42.0-75.0); Hematocrit 23.1 % (42.0-52.0); Hemoglobin 7.5 g/dL (14.0-18.0); Mean Corpuscular HGB CONC 32.5 g/dL (32.0-36.0); Mean Corpuscular Hemoglobin 28.7 pg (27.0-31.0); Mean Corpuscular Volume 88.5 fL (78.0-98.0); Platelet Count 104 10x3/uL (130-400); Red Blood Cell (RBC) Count 2.61 mill/uL (4.70-6.10)
[2024-05-30 08:50] LABS: Anisocytosis SLIGHT = 6-15 cells HPF (0-5); Burr Cells MODERATE= 6-15 cells HPF (0-1); Ovalocytes SLIGHT = 2-5 cells HPF (0-1); Platelet Adequacy Comment Platelets Decreased; Poikilocytosis SLIGHT = 6-15 cells HPF (0-5); Polychromasia SLIGHT = 2-3 cells HPF (0-2); Schistocytes MODERATE= 6-15 cells HPF (0-1); Target Cells SLIGHT = 2-5 cells HPF (0-1)
[2024-05-30] MEDS ORDERED: Vancomycin 1 GM in Premix 1 BAG IVPB SCH (09:00)
[2024-05-30] MEDS: Cefepime 2 GM in Sodium Chloride 0.9% 100 ML IVPB SCH (09:13)
[2024-05-30] MEDS: Heparin 5,000 UNITS/ML VIAL SC SCH (09:13)
[2024-05-30] MEDS: Famotidine/PF 20 mg/2ml Vial SLOW IVP SCH (09:14)
[2024-05-30] MEDS: Ferrous Sulfate 325 MG TAB PO SCH (11:24)
[2024-05-30] MEDS: Rifaximin 550 MG TAB PO SCH (11:24)
[2024-05-30] MEDS: Lactulose 20 GM (30 mL) UDCUP PO SCH (11:24)
[2024-05-30] MEDS: Vancomycin 1.5 GRAM/300 ML BAG 1.5 GM in Premix 1 BAG IVPB SCH (15:19)
[2024-05-30 18:36] VITALS: BMI 26.6
[2024-05-31 04:57] LABS: Hematocrit 26.3 % (42.0-52.0); Hemoglobin 7.9 g/dL (14.0-18.0); Mean Corpuscular Hemoglobin 28.1 pg (27.0-31.0); Mean Corpuscular Volume 93.6 fL (78.0-98.0); Platelet Count 140 10x3/uL (130-400); RBC Distribution Width 23.3 % (11.5-14.5); Red Blood Cell (RBC) Count 2.81 mill/uL (4.70-6.10)
[2024-05-31 05:00] LABS: Vancomycin, Random 24.4 ug/mL (See Comment)
[2024-05-31 05:08] LABS: Anion Gap 11 mmol/L (10-20); BUN (Urea Nitrogen) 23 mg/dL (8.4-25.7); Calc. Creatinine Clearance 59 mL/min (70-130); Calcium 7.9 mg/dL (7.8-10.44); Carbon Dioxide 14 mmol/L (23-31); Chloride 116 mmol/L (98-107); Estimated GFR 69; Glucose 77 mg/dL (80-115); Potassium 3.4 mmol/L (3.5-5.1); Sodium 138 mmol/L (136-145)
[2024-05-31] MEDS ORDERED: Potassium Chloride 20 MEQ TAB PO SCH (09:00)
[2024-05-31] MEDS: Potassium Chloride 20 MEQ TAB PO SCH (09:49)
[2024-05-31] MEDS: FLU (Fluarix Triv) TS24-25(6MOS UP)/PF 45 MCG/0.5 ML Syringe IM ONE (09:50)
[2024-05-31 11:28] LABS: Magnesium 1.7 mg/dL (1.6-2.6)
[2024-05-31] MEDS: VANCOMYCIN 1.25 GM/250 ML BAG 1.25 GM in Premix 1 BAG IVPB SCH (15:32)
[2024-06-02 04:55] LABS: Anion Gap 9 mmol/L (10-20); BUN (Urea Nitrogen) 24 mg/dL (8.4-25.7); Calc. Creatinine Clearance 72 mL/min (70-130); Calcium 7.8 mg/dL (7.8-10.44); Carbon Dioxide 17 mmol/L (23-31); Chloride 120 mmol/L (98-107); Estimated GFR 87; Glucose 88 mg/dL (80-115); Potassium 3.3 mmol/L (3.5-5.1); Sodium 143 mmol/L (136-145); Vancomycin, Random 18.3 ug/mL (See Comment)
[2024-06-02 05:18] LABS: Hematocrit 25.8 % (42.0-52.0); Hemoglobin 8.1 g/dL (14.0-18.0); Mean Corpuscular HGB CONC 31.4 g/dL (32.0-36.0); Mean Corpuscular Hemoglobin 28.3 pg (27.0-31.0); Mean Corpuscular Volume 90.2 fL (78.0-98.0); Platelet Count 83 10x3/uL (130-400); RBC Distribution Width 22.5 % (11.5-14.5); Red Blood Cell (RBC) Count 2.86 mill/uL (4.70-6.10)
[2024-06-02 11:32] VITALS: BP 98/61; TEMP 97.5
== END 2024-06-02 12:20 | disposition home or self-care (01) | DRG 432 ==
LOC: ERS 17:44 → T4-A 21:32
PROVIDERS: ADMIT Family Medicine; ATTEND Internal Medicine
PROC: 0W9G3ZZ Drainage of Peritoneal Cavity, Percutaneous Approach (ICD-10-PCS; principal; 2024-05-29)
PROC: 4A033R1 Measurement of Arterial Saturation, Peripheral, Percutaneous Approach (ICD-10-PCS; 2024-05-29)
PROC: 30233J1 Transfusion of Nonautologous Serum Albumin into Peripheral Vein, Percutaneous Approach (ICD-10-PCS; 2024-05-29)
DX: K70.31 Alcoholic cirrhosis of liver with ascites (principal); J18.9 Pneumonia, unspecified organism; N17.9 Acute kidney failure, unspecified; I50.32 Chronic diastolic (congestive) heart failure; E87.20 Acidosis, unspecified; K76.82 Hepatic encephalopathy; E87.6 Hypokalemia; D63.8 Anemia in other chronic diseases classified elsewhere; Z79.899 Other long term (current) drug therapy; Z90.49 Acquired absence of other specified parts of digestive tract; Z98.890 Other specified postprocedural states; Z87.891 Personal history of nicotine dependence; Z51.5 Encounter for palliative care
CPT/HCPCS: 0241U; 36415; 36416; 36600; 43753; 70450; 71045; 74018; 74176; 74230; 80048; 80053; 80202; 80306; 80307; 81001; 82042; 82140; 82150; 82550; 82805; 82945; 83605; 83615; 83690; 83735; 84157; 84439; 84443; 84481; 84484; 85025; 85027; 85060; 85610; 87040; 87070; 87081; 87205; 89051; 93005; 94760; 96361; 96365; 96375; 97139; J0456; J0692; J1644; J2405; J3370; J3490; P9047

== ENCOUNTER 2024-06-08 10:18 | Inpatient (IN) | payer OTHER ==
[2024-06-08] MEDS ORDERED: Albumin 25% 100 ML ONE (10:45)
[2024-06-08] MEDS ORDERED: cefTRIAXone (ROCEPHIN) 1 GM VIAL ONE (11:20)
[2024-06-08] MEDS ORDERED: Sodium Chloride 0.9% 100 ML ONE (11:20)
[2024-06-08] MEDS ORDERED: Albumin 25% 200 ML ONE (11:51)
[2024-06-08 11:57] LABS: #Basophils Less than 0.03 10x3/uL (0.0-0.2); %Basophils 0.3 % (0.0-1.0); %Lymphocytes 41.5 % (21.0-51.0); %Monocytes 10.3 % (0.0-10.0); %Neutrophils 46.4 % (42.0-75.0); Hematocrit 20.9 % (42.0-52.0); Hemoglobin 6.5 g/dL (14.0-18.0); Mean Corpuscular HGB CONC 31.1 g/dL (32.0-36.0); Mean Corpuscular Hemoglobin 30.2 pg (27.0-31.0); Mean Corpuscular Volume 97.2 fL (78.0-98.0); Platelet Count 79 10x3/uL (130-400); RBC Distribution Width 23.5 % (11.5-14.5); Red Blood Cell (RBC) Count 2.15 mill/uL (4.70-6.10)
[2024-06-08 12:15] LABS: Acetaminophen Less than 10 mcg/mL (Less than 10); Alcohol Less than 10.0 mg/dL (Less than 10); Lipase 56 U/L (8-78); Magnesium 1.7 mg/dL (1.6-2.6); Salicylate Less than 8.0 mg/dL (Less than 8.0)
[2024-06-08 12:16] LABS: ALT (SGPT) 10 U/L (8-55); AST (SGOT) 27 U/L (5-34); Albumin 2.4 g/dL (3.4-4.8); Alkaline Phosphatase 87 U/L (40-110); Anion Gap 14 mmol/L (10-20); BUN (Urea Nitrogen) 21 mg/dL (8.4-25.7); Bilirubin, Total 0.7 mg/dL (0.2-1.2); Calc. Creatinine Clearance 0 mL/min (70-130); Calcium 7.5 mg/dL (7.8-10.44); Carbon Dioxide 13 mmol/L (23-31); Chloride 115 mmol/L (98-107); Estimated GFR 47; Globulin 3.6 g/dL (2.4-3.5); Glucose 83 mg/dL (80-115); Potassium 3.9 mmol/L (3.5-5.1); Sodium 138 mmol/L (136-145)
[2024-06-08 12:25] LABS: INR-International Normal Ratio 1.9; PTT 43.5 sec (22.9-36.1); Prothrombin Time 21.4 sec (12.0-14.7)
[2024-06-08] MEDS ORDERED: NOREPINEPHRINE 8 MG/250 ML-D5W 250 ML ONE (12:44)
[2024-06-08] MEDS ORDERED: Midazolam HCl 2 mg/2 ml Vial ONE (13:12)
[2024-06-08] MEDS ORDERED: Octreotide Acetate 500 MCG/ML VIAL ONE (13:25)
[2024-06-08] MEDS ORDERED: Lactulose 20 GM (30 mL) UDCUP ONE (14:10)
[2024-06-08 14:51] LABS: Lactic Acid 0.98 mmol/L (0.5-2.2)
[2024-06-08] MEDS ORDERED: Senokot S 8.6-50 MG TAB PO PRN (15:23)
[2024-06-08] MEDS ORDERED: Acetaminophen 325 MG TAB PO PRN (15:23)
[2024-06-08 15:32] LABS: Bilirubin Negative (Negative); Blood, Urine Negative (Negative); CAUTI Indications for Culture Alt mental st,lethar; Clarity Clear (Clear); Glucose, Urine (Dipstick) Normal (Negative); Ketone, Urine Negative (Negative); Leukocyte 25 Leu/uL (Negative); Nitrite Negative (Negative); Protein, Urine (Dipstick) 30 mg/dL (Neg-Trace); RBC/HPF 0-3 HPF (0-3); Specific Gravity, Urine 1.018 (1.002-1.036); Squamous Epithelial 0-3 HPF (0-3); Urobilinogen Normal mg/dL (Less than 2); WBC/HPF 0-3 HPF (0-3); pH, Urine 5.5 (5.0-9.0)
[2024-06-08 15:34] LABS: Bacteria/HPF 1+ HPF (None Seen)
[2024-06-08 15:35] LABS: Urine Culture Reflex No No
[2024-06-08 15:45] LABS: Amphetamine Not Detected (NotDetected); Barbiturates Screen Not Detected (NotDetected); Benzodiazepine Screen Detected (NotDetected); Cocaine Metabolite Screen Not Detected (NotDetected); Methadone Not Detected (NotDetected); Methamphetamine Not Detected (NotDetected); Opiate Screen Not Detected (NotDetected); Oxycodone Screen Not Detected (NotDetected); Phencyclidine (PCP) Not Detected (NotDetected); THC/Cannabinoid Screen Not Detected (NotDetected); Tricyclic Screen Not Detected (NotDetected)
[2024-06-08] MEDS ORDERED: NOREPINEPHRINE 8 MG/250 ML-D5W 250 ML IVPB SCH (16:00)
[2024-06-08 16:16] VITALS: BMI 27.7
[2024-06-08] MEDS: Lactulose 20 GM (30 mL) UDCUP PO SCH (20:25)
[2024-06-08] MEDS: Pantoprazole 80 MG, Admixture Fee 1 EACH in Sodium Chloride 0.9% 100 ML IVPB SCH (21:08)
[2024-06-08] MEDS: Piperacillin/Tazobactam 3.375 GM in Sodium Chloride 0.9% 100 ML IVPB SCH (23:16)
[2024-06-09] MEDS: Piperacillin/Tazobactam 3.375 GM in Sodium Chloride 0.9% 100 ML IVPB SCH (03:12)
[2024-06-09 04:32] LABS: #Basophils Less than 0.03 10x3/uL (0.0-0.2); #Eosinophils Less than 0.03 10x3/uL (0.0-0.7); %Basophils 0.3 % (0.0-1.0); %Eosinophils 0.6 % (0.0-10.0); %Lymphocytes 24.9 % (21.0-51.0); %Monocytes 7.3 % (0.0-10.0); Hematocrit 24.1 % (42.0-52.0); Hemoglobin 7.5 g/dL (14.0-18.0); Mean Corpuscular HGB CONC 31.1 g/dL (32.0-36.0); Mean Corpuscular Hemoglobin 29.4 pg (27.0-31.0); Mean Corpuscular Volume 94.5 fL (78.0-98.0); Platelet Count 70 10x3/uL (130-400); Red Blood Cell (RBC) Count 2.55 mill/uL (4.70-6.10)
[2024-06-09 05:00] LABS: ALT (SGPT) 10 U/L (8-55); AST (SGOT) 21 U/L (5-34); Albumin 2.5 g/dL (3.4-4.8); Alkaline Phosphatase 70 U/L (40-110); Anion Gap 8 mmol/L (10-20); BUN (Urea Nitrogen) 22 mg/dL (8.4-25.7); Bilirubin, Total 1.6 mg/dL (0.2-1.2); Calc. Creatinine Clearance 54 mL/min (70-130); Calcium 7.4 mg/dL (7.8-10.44); Carbon Dioxide 18 mmol/L (23-31); Chloride 119 mmol/L (98-107); Estimated GFR 55; Globulin 3.4 g/dL (2.4-3.5); Glucose 84 mg/dL (80-115); Potassium 3.8 mmol/L (3.5-5.1); Protein, Total 5.9 g/dL (5.8-8.1); Sodium 141 mmol/L (136-145)
[2024-06-09] MEDS: Octreotide Acetate 1,250 MCG in Sodium Chloride 0.9% 250 ML 250 ML IVPB SCH (07:11)
[2024-06-09] MEDS: Rifaximin 550 MG TAB PO SCH (08:23)
[2024-06-09] MEDS: Pantoprazole 40 MG DR.TAB PO SCH (08:23)
[2024-06-09] MEDS ORDERED: Rifaximin 550 MG TAB PO SCH (09:00)
[2024-06-09] MEDS: Spironolactone 25 MG TAB PO SCH (10:50)
[2024-06-09] MEDS: Furosemide 20 MG TAB PO SCH (10:50)
[2024-06-09] MEDS ORDERED: cefTRIAXone\\ROCEPHIN 1 GM in Sodium Chloride 0.9% 100 ML IVPB SCH (15:00)
[2024-06-09] MEDS: traMADol HCl 50 MG TAB PO PRN (22:00)
[2024-06-10 04:52] LABS: #Basophils Less than 0.03 10x3/uL (0.0-0.2); #Eosinophils Less than 0.03 10x3/uL (0.0-0.7); %Basophils 0.2 % (0.0-1.0); %Eosinophils 0.5 % (0.0-10.0); %Lymphocytes 20.6 % (21.0-51.0); %Monocytes 11.4 % (0.0-10.0); %Neutrophils 66.8 % (42.0-75.0); Hemoglobin 8.4 g/dL (14.0-18.0); Mean Corpuscular Hemoglobin 29.1 pg (27.0-31.0); Mean Corpuscular Volume 96.9 fL (78.0-98.0); Platelet Count 76 10x3/uL (130-400); RBC Distribution Width 22.6 % (11.5-14.5); Red Blood Cell (RBC) Count 2.89 mill/uL (4.70-6.10)
[2024-06-10 05:17] LABS: ALT (SGPT) 10 U/L (8-55); AST (SGOT) 20 U/L (5-34); Albumin 2.6 g/dL (3.4-4.8); Alkaline Phosphatase 65 U/L (40-110); Anion Gap 10 mmol/L (10-20); BUN (Urea Nitrogen) 19 mg/dL (8.4-25.7); Calc. Creatinine Clearance 54 mL/min (70-130); Calcium 7.7 mg/dL (7.8-10.44); Carbon Dioxide 16 mmol/L (23-31); Chloride 119 mmol/L (98-107); Estimated GFR 54; Globulin 3.5 g/dL (2.4-3.5); Glucose 131 mg/dL (80-115); Potassium 4.2 mmol/L (3.5-5.1); Protein, Total 6.1 g/dL (5.8-8.1); Sodium 141 mmol/L (136-145)
[2024-06-10] MEDS: Furosemide 20 MG TAB PO SCH (08:56)
[2024-06-10] MEDS: Ferrous Sulfate 325 MG TAB PO SCH (08:56)
[2024-06-10] MEDS: Spironolactone 25 MG TAB PO SCH (08:56)
[2024-06-10] MEDS: traMADol HCl 50 MG TAB PO PRN (20:45)
[2024-06-10] MEDS: Albumin 25% 25 GM (100 mL) BOT IVPB SCH (20:46)
[2024-06-10] MEDS: Lactulose 20 GM (30 mL) UDCUP PO SCH (20:46)
[2024-06-11 05:28] LABS: ALT (SGPT) 8 U/L (8-55); AST (SGOT) 21 U/L (5-34); Albumin 2.5 g/dL (3.4-4.8); Alkaline Phosphatase 60 U/L (40-110); Anion Gap 12 mmol/L (10-20); BUN (Urea Nitrogen) 17 mg/dL (8.4-25.7); Bilirubin, Total 0.9 mg/dL (0.2-1.2); Calc. Creatinine Clearance 66 mL/min (70-130); Calcium 7.9 mg/dL (7.8-10.44); Carbon Dioxide 15 mmol/L (23-31); Chloride 120 mmol/L (98-107); Estimated GFR 69; Globulin 3.6 g/dL (2.4-3.5); Glucose 98 mg/dL (80-115); Potassium 4.2 mmol/L (3.5-5.1); Protein, Total 6.1 g/dL (5.8-8.1); Sodium 143 mmol/L (136-145)
[2024-06-11 06:29] LABS: Hypochromia SLIGHT = 6-15 cells (100X) (0-5/hpf); Plasma Cells 0 % (0-0); Platelet Adequacy Comment Appears Decreased
[2024-06-11 06:34] LABS: #Basophils Less than 0.03 10x3/uL (0.0-0.2); %Basophils 0.2 % (0.0-1.0); %Eosinophils 0.7 % (0.0-10.0); %Lymphocytes 33.3 % (21.0-51.0); %Monocytes 13.9 % (0.0-10.0); %Neutrophils 51.4 % (42.0-75.0); Hematocrit 28.6 % (42.0-52.0); Hemoglobin 8.8 g/dL (14.0-18.0); Mean Corpuscular HGB CONC 30.8 g/dL (32.0-36.0); Mean Corpuscular Hemoglobin 29.4 pg (27.0-31.0); Mean Corpuscular Volume 95.7 fL (78.0-98.0); Platelet Count 67 10x3/uL (130-400); RBC Distribution Width 22.7 % (11.5-14.5); Red Blood Cell (RBC) Count 2.99 mill/uL (4.70-6.10)
[2024-06-11] MEDS ORDERED: Sodium Bicarbonate 2.5 MEQ/5 ML SDV ONE (10:42)
[2024-06-11] MEDS ORDERED: Lidocaine 1% PF 5 ML VIAL ONE (10:42)
[2024-06-11 12:55] LABS: RBC Count-Automated (BF) 464 /cu.mm; WBC/Nucleated-Auto (BF) 124 /cu.mm
[2024-06-11 12:57] LABS: BF Color Yellow; Body Fluid Source Ascites Body Fluid; Clarity Clear (Clear); Tube # EDTA
[2024-06-11 13:33] LABS: BF Segmented Neutrophils 2 %; Cell Count Non Hematic 18 %; Eosinophils 1 %; Lymphocytes 79 %
[2024-06-12] MEDS ORDERED: Electrolyte Replacement Protocol 1 EACH FS SCH (08:59)
[2024-06-12 09:32] LABS: Magnesium 1.6 mg/dL (1.6-2.6)
[2024-06-12] MEDS: Magnesium 2 GM/50 ML(in water) 2 GM in Premix 1 BAG IVPB SCH (11:17)
[2024-06-12 19:15] LABS: Bilirubin Negative (Negative); Blood, Urine Negative (Negative); CAUTI Indications for Culture Alt mental st,lethar; Clarity Clear (Clear); Glucose, Urine (Dipstick) Normal (Negative); Ketone, Urine Negative (Negative); Leukocyte Negative Leu/uL (Negative); Nitrite Negative (Negative); Protein, Urine (Dipstick) Negative (Neg-Trace); RBC/HPF None Seen HPF (0-3); Specific Gravity, Urine 1.012 (1.002-1.036); Squamous Epithelial 0-3 HPF (0-3); Urobilinogen Normal mg/dL (Less than 2); WBC/HPF 0-3 HPF (0-3); pH, Urine 5.5 (5.0-9.0)
[2024-06-12 19:17] LABS: Bacteria/HPF 1+ HPF (None Seen)
[2024-06-12 19:20] LABS: Urine Culture Reflex No No
[2024-06-12] MEDS: Folic Acid 1 MG TAB PO SCH (20:40)
[2024-06-12] MEDS: Multivit, Therapeutic 1 TAB PO SCH (20:41)
[2024-06-12] MEDS: Cyanocobalamin (Vitamin B-12) 1,000 MCG TAB PO SCH (20:41)
[2024-06-12] MEDS: Cholecalciferol 1,000 UNITS (25 MCG) TAB PO SCH (20:41)
[2024-06-12] MEDS: Thiamine 100 MG TAB PO SCH (20:41)
[2024-06-13 05:45] LABS: #Basophils Less than 0.03 10x3/uL (0.0-0.2); #Eosinophils Less than 0.03 10x3/uL (0.0-0.7); %Basophils 0.2 % (0.0-1.0); %Eosinophils 0.2 % (0.0-10.0); %Lymphocytes 31.6 % (21.0-51.0); %Monocytes 12.9 % (0.0-10.0); %Neutrophils 54.6 % (42.0-75.0); Hematocrit 25.8 % (42.0-52.0); Hemoglobin 8.2 g/dL (14.0-18.0); Mean Corpuscular HGB CONC 31.8 g/dL (32.0-36.0); Mean Corpuscular Volume 94.5 fL (78.0-98.0); Platelet Count 63 10x3/uL (130-400); RBC Distribution Width 23.7 % (11.5-14.5); Red Blood Cell (RBC) Count 2.73 mill/uL (4.70-6.10)
[2024-06-13 05:48] LABS: Phosphorus 2.9 mg/dL (2.5-4.5)
[2024-06-13 05:50] LABS: Albumin 2.9 g/dL (3.1-4.5); Anion Gap 11 mmol/L (10-20); BUN (Urea Nitrogen) 16 mg/dL (8.4-25.7); BUN/Creatinine Ratio 16.49; Calc. Creatinine Clearance 80 mL/min (70-130); Carbon Dioxide 20 mmol/L (23-31); Chloride 118 mmol/L (98-107); Estimated GFR 87; Glucose 87 mg/dL (80-115); Magnesium 1.9 mg/dL (1.6-2.6); Sodium 145 mmol/L (136-145)
[2024-06-13] MEDS: Magnesium 2 GM/50 ML(in water) 2 GM in Premix 1 BAG IVPB SCH (08:48)
[2024-06-13] MEDS: Albumin 25% 25 GM (100 mL) BOT IVPB SCH (11:51)
[2024-06-13] MEDS: Torsemide 10 MG TAB PO SCH (13:21)
[2024-06-13] MEDS: Spironolactone 25 MG TAB PO SCH (13:22)
[2024-06-13 14:00] VITALS: BMI 28.7
[2024-06-13] MEDS: cefTRIAXone\\ROCEPHIN 1 GM in Sodium Chloride 0.9% 100 ML IVPB SCH (17:00)
[2024-06-13] MEDS: Lactulose 20 GM (30 mL) UDCUP PO SCH (17:00)
[2024-06-13] MEDS ORDERED: Midodrine HCl 5 MG TAB PO PRN (19:52)
[2024-06-14 05:34] LABS: #Basophils Less than 0.03 10x3/uL (0.0-0.2); %Eosinophils 1.1 % (0.0-10.0); %Lymphocytes 29.6 % (21.0-51.0); %Monocytes 11.5 % (0.0-10.0); %Neutrophils 57.5 % (42.0-75.0); Hematocrit 24.1 % (42.0-52.0); Hemoglobin 7.4 g/dL (14.0-18.0); Mean Corpuscular HGB CONC 30.7 g/dL (32.0-36.0); Mean Corpuscular Hemoglobin 29.1 pg (27.0-31.0); Mean Corpuscular Volume 94.9 fL (78.0-98.0); Mean Platelet Volume 10.4 fL (7.4-10.4); Platelet Count 64 10x3/uL (130-400); RBC Distribution Width 24.1 % (11.5-14.5); Red Blood Cell (RBC) Count 2.54 mill/uL (4.70-6.10)
[2024-06-14 05:39] LABS: INR-International Normal Ratio 1.6; Prothrombin Time 19.3 sec (12.0-14.7)
[2024-06-14 05:40] LABS: PTT 41.1 sec (22.9-36.1)
[2024-06-14 06:51] LABS: ALT (SGPT) 8 U/L (Less than 45); AST (SGOT) 32 U/L (11-34); Albumin 3.3 g/dL (3.1-4.5); Alkaline Phosphatase 83 U/L (40-110); BUN (Urea Nitrogen) 18 mg/dL (8.4-25.7); Bilirubin, Total 1.4 mg/dL (0.3-1.2); Calc. Creatinine Clearance 86 mL/min (70-130); Calcium 8.3 mg/dL (7.8-10.44); Carbon Dioxide 20 mmol/L (23-31); Estimated GFR 95; Globulin 3.2 g/dL (2.4-3.5); Glucose 89 mg/dL (80-115); Magnesium 2.1 mg/dL (1.6-2.6); Protein, Total 6.5 g/dL (5.8-8.1)
[2024-06-14 08:37] LABS: Anion Gap 13 mmol/L (10-20); Chloride 117 mmol/L (98-107); Sodium 145 mmol/L (136-145)
[2024-06-14] MEDS ORDERED: Torsemide 10 MG TAB PO SCH (09:00)
[2024-06-14] MEDS: Spironolactone 100 MG TAB PO SCH (09:45)
[2024-06-14] MEDS: Furosemide 100 MG in Sodium Chloride 0.9% 90 ML IVPB SCH (11:08)
[2024-06-15 04:37] LABS: #Basophils Less than 0.03 10x3/uL (0.0-0.2); %Basophils 0.2 % (0.0-1.0); %Eosinophils 0.6 % (0.0-10.0); %Lymphocytes 22.9 % (21.0-51.0); %Monocytes 13.6 % (0.0-10.0); %Neutrophils 62.3 % (42.0-75.0); Hematocrit 23.1 % (42.0-52.0); Hemoglobin 7.1 g/dL (14.0-18.0); Mean Corpuscular HGB CONC 30.7 g/dL (32.0-36.0); Mean Corpuscular Hemoglobin 29.5 pg (27.0-31.0); Mean Corpuscular Volume 95.9 fL (78.0-98.0); Platelet Count 63 10x3/uL (130-400); Red Blood Cell (RBC) Count 2.41 mill/uL (4.70-6.10)
[2024-06-15 05:02] LABS: ALT (SGPT) 8 U/L (Less than 45); AST (SGOT) 30 U/L (11-34); Albumin 3.4 g/dL (3.1-4.5); Alkaline Phosphatase 92 U/L (40-110); Anion Gap 12 mmol/L (10-20); BUN (Urea Nitrogen) 17 mg/dL (8.4-25.7); Bilirubin, Total 1.4 mg/dL (0.3-1.2); Calc. Creatinine Clearance 86 mL/min (70-130); Calcium 8.4 mg/dL (7.8-10.44); Carbon Dioxide 23 mmol/L (23-31); Chloride 113 mmol/L (98-107); Estimated GFR 95; Globulin 3.1 g/dL (2.4-3.5); Glucose 94 mg/dL (80-115); Protein, Total 6.5 g/dL (5.8-8.1); Sodium 144 mmol/L (136-145)
[2024-06-16 05:48] LABS: #Basophils Less than 0.03 10x3/uL (0.0-0.2); %Basophils 0.2 % (0.0-1.0); %Eosinophils 0.5 % (0.0-10.0); %Lymphocytes 17.7 % (21.0-51.0); %Monocytes 11.7 % (0.0-10.0); %Neutrophils 69.1 % (42.0-75.0); Hematocrit 22.4 % (42.0-52.0); Hemoglobin 6.8 g/dL (14.0-18.0); Mean Corpuscular HGB CONC 30.4 g/dL (32.0-36.0); Mean Corpuscular Hemoglobin 28.8 pg (27.0-31.0); Mean Corpuscular Volume 94.9 fL (78.0-98.0); Mean Platelet Volume 11.6 fL (7.4-10.4); Platelet Count 74 10x3/uL (130-400); RBC Distribution Width 23.7 % (11.5-14.5); Red Blood Cell (RBC) Count 2.36 mill/uL (4.70-6.10)
[2024-06-16 07:16] LABS: Anion Gap 9 mmol/L (10-20); BUN (Urea Nitrogen) 21 mg/dL (8.4-25.7); Calc. Creatinine Clearance 85 mL/min (70-130); Calcium 8.3 mg/dL (7.8-10.44); Carbon Dioxide 25 mmol/L (23-31); Chloride 111 mmol/L (98-107); Estimated GFR 94; Glucose 104 mg/dL (80-115); Potassium 3.7 mmol/L (3.5-5.1); Sodium 141 mmol/L (136-145)
[2024-06-16] MEDS: Furosemide 40 MG TAB PO SCH (09:11)
[2024-06-16] MEDS: Lactulose 20 GM (30 mL) UDCUP PO SCH (21:31)
[2024-06-17 12:19] LABS: #Basophils Less than 0.03 10x3/uL (0.0-0.2); %Basophils 0.2 % (0.0-1.0); %Eosinophils 0.5 % (0.0-10.0); %Lymphocytes 16.2 % (21.0-51.0); %Monocytes 11.9 % (0.0-10.0); %Neutrophils 70.7 % (42.0-75.0); Hemoglobin 7.6 g/dL (14.0-18.0); Mean Corpuscular HGB CONC 30.4 g/dL (32.0-36.0); Mean Corpuscular Hemoglobin 29.5 pg (27.0-31.0); Mean Corpuscular Volume 96.9 fL (78.0-98.0); Mean Platelet Volume 12.3 fL (7.4-10.4); Platelet Count 90 10x3/uL (130-400); RBC Distribution Width 23.6 % (11.5-14.5); Red Blood Cell (RBC) Count 2.58 mill/uL (4.70-6.10)
[2024-06-17 12:37] LABS: Anion Gap 12 mmol/L (10-20); BUN (Urea Nitrogen) 22 mg/dL (8.4-25.7); Calc. Creatinine Clearance 71 mL/min (70-130); Calcium 8.3 mg/dL (7.8-10.44); Carbon Dioxide 25 mmol/L (23-31); Chloride 109 mmol/L (98-107); Estimated GFR 76; Glucose 94 mg/dL (80-115); Magnesium 1.8 mg/dL (1.6-2.6); Potassium 3.8 mmol/L (3.5-5.1); Sodium 142 mmol/L (136-145)
[2024-06-17] MEDS: Furosemide 40 MG TAB PO SCH (14:35)
[2024-06-17] MEDS: Magnesium 2 GM/50 ML(in water) 2 GM in Premix 1 BAG IVPB SCH (14:39)
[2024-06-18 05:38] LABS: #Basophils Less than 0.03 10x3/uL (0.0-0.2); %Basophils 0.2 % (0.0-1.0); %Eosinophils 0.8 % (0.0-10.0); %Lymphocytes 25.2 % (21.0-51.0); %Monocytes 14.5 % (0.0-10.0); %Neutrophils 59.1 % (42.0-75.0); Hematocrit 21.7 % (42.0-52.0); Hemoglobin 6.8 g/dL (14.0-18.0); Mean Corpuscular HGB CONC 31.3 g/dL (32.0-36.0); Mean Corpuscular Hemoglobin 30.2 pg (27.0-31.0); Mean Corpuscular Volume 96.4 fL (78.0-98.0); Platelet Count 77 10x3/uL (130-400); RBC Distribution Width 23.1 % (11.5-14.5); Red Blood Cell (RBC) Count 2.25 mill/uL (4.70-6.10)
[2024-06-18 05:59] LABS: Anion Gap 14 mmol/L (10-20); BUN (Urea Nitrogen) 21 mg/dL (8.4-25.7); Calc. Creatinine Clearance 64 mL/min (70-130); Calcium 8.1 mg/dL (7.8-10.44); Carbon Dioxide 24 mmol/L (23-31); Chloride 109 mmol/L (98-107); Estimated GFR 67; Glucose 88 mg/dL (80-115); Magnesium 2.1 mg/dL (1.6-2.6); Potassium 3.5 mmol/L (3.5-5.1); Sodium 143 mmol/L (136-145)
[2024-06-18] MEDS: Potassium Chloride 20 MEQ TAB PO SCH (08:19)
[2024-06-18] MEDS: Albumin 25% 25 GM (100 mL) BOT IVPB SCH (09:11)
[2024-06-18] MEDS: Lactulose 20 GM (30 mL) UDCUP PO SCH (21:03)
[2024-06-19 05:57] LABS: #Basophils Less than 0.03 10x3/uL (0.0-0.2); %Eosinophils 0.5 % (0.0-10.0); %Lymphocytes 13.9 % (21.0-51.0); %Monocytes 12.1 % (0.0-10.0); %Neutrophils 73.3 % (42.0-75.0); Hematocrit 27.5 % (42.0-52.0); Hemoglobin 8.6 g/dL (14.0-18.0); Mean Corpuscular HGB CONC 31.3 g/dL (32.0-36.0); Mean Corpuscular Hemoglobin 29.9 pg (27.0-31.0); Mean Corpuscular Volume 95.5 fL (78.0-98.0); Platelet Count 76 10x3/uL (130-400); RBC Distribution Width 21.9 % (11.5-14.5); Red Blood Cell (RBC) Count 2.88 mill/uL (4.70-6.10)
[2024-06-19 06:09] LABS: Anion Gap 12 mmol/L (10-20); BUN (Urea Nitrogen) 19 mg/dL (8.4-25.7); Calc. Creatinine Clearance 73 mL/min (70-130); Calcium 8.2 mg/dL (7.8-10.44); Carbon Dioxide 23 mmol/L (23-31); Chloride 112 mmol/L (98-107); Estimated GFR 78; Glucose 110 mg/dL (80-115); Potassium 3.6 mmol/L (3.5-5.1); Sodium 143 mmol/L (136-145)
[2024-06-19] MEDS: Furosemide 40 MG TAB PO SCH (08:15)
[2024-06-19] MEDS: Albumin 25% 25 GM (100 mL) BOT IVPB SCH (08:30)
[2024-06-19 16:27] VITALS: BP 96/59; TEMP 100.2
[2024-06-19] MEDS ORDERED: Rifaximin 550 MG TAB PO SCH (21:00)
== END 2024-06-19 19:30 | disposition home or self-care (01) | DRG 432 ==
LOC: ERS 10:18 → CCU 14:24 → MSONC 06-09 10:02
PROVIDERS: ADMIT Student in an Organized Health Care Education/Training Program; ATTEND Internal Medicine
PROC: 30233N1 Transfusion of Nonautologous Red Blood Cells into Peripheral Vein, Percutaneous Approach (ICD-10-PCS; principal; 2024-06-08)
PROC: 30233J1 Transfusion of Nonautologous Serum Albumin into Peripheral Vein, Percutaneous Approach (ICD-10-PCS; 2024-06-08)
DX: K74.60 Unspecified cirrhosis of liver (principal); A41.9 Sepsis, unspecified organism; L89.154 Pressure ulcer of sacral region, stage 4; R65.21 Severe sepsis with septic shock; G92.8 Other toxic encephalopathy; R18.8 Other ascites; D61.818 Other pancytopenia; N17.9 Acute kidney failure, unspecified; E87.20 Acidosis, unspecified; I50.32 Chronic diastolic (congestive) heart failure; Z87.19 Personal history of other diseases of the digestive system; K76.82 Hepatic encephalopathy; B18.2 Chronic viral hepatitis C; D50.0 Iron deficiency anemia secondary to blood loss (chronic); I95.9 Hypotension, unspecified; D63.1 Anemia in chronic kidney disease; N18.2 Chronic kidney disease, stage 2 (mild); E83.42 Hypomagnesemia
CPT/HCPCS: 36415; 36416; 36430; 36556; 49083; 70450; 74018; 80048; 80053; 80069; 80306; 80307; 81001; 82042; 82140; 83605; 83690; 83735; 84157; 84443; 85025; 85060; 85610; 85730; 86850; 86900; 86901; 87040; 87070; 87205; 89051; 93005; 96365; 96366; 96367; 96368; 96375; 97139; J0696; J1940; J2250; J2354; J2470; J2543; J3475; J7050; P9016; P9047